=== PATIENT | female | born 1965 | race Caucasian/White ===

== ENCOUNTER 2016-08-05 15:00 | Inpatient (IN) | payer BC, OTHER ==
--- NOTE | 2016-08-05 15:33 | EDPRACDOC ---
<Elvia Benitez - Last Filed: 08/05/16 19:18> - General Information Information Source: Patient Mode Of Arrival: Walk - History of Present Illness HPI: C/o sob, productive cough (gamble) and left side rib pain that radiates into back, occasionally upper left side chest. Pt seen here last friday for sob, fever and dx with pneumonia, acute renal, anemia. Pt states she feels a little better since starting abx but SOB has not improved, prior cough is now productive (gamble ) and left side rib pain started yesterday. Denies fever, N/V/D, change in urine or BM. No med hx. non smoker. Relevant History: Reports: None Cough: Reports: Productive (gamble) Rhinorrhea: Reports: None Ear Symptoms: Reports: None SOB Worsens with: Reports: Exertion, Movement, Coughing SOB Improves with: Reports: Sitting up, Rest Recently treated infections:: Reports: Pneumonia Associated Signs and symptoms: Reports: Cough <Beka Chavez - Last Filed: 08/06/16 00:38> - General Information Chief Complaint: Dyspnea/Resp distress Stated Complaint: SHOB LT SIDED CHEST PAIN & PAIN INTO BACK DX PNEUM Home Medications: Home Medications Acetaminophen with Codeine [TYLENOL WITH CODEINE; [employer] with Codeine] 5 ml PO Q4-6H PRN #120 ml 07/30/16 Ibuprofen 600 mg PO TID #20 tablet 07/30/16 Amoxicillin/Potassium Clav [Augmentin 875-125 Tablet] 1 each PO BID(LAUREN) #16 tablet 07/31/16 Fluticasone/Salmeterol [Advair 250-50] 1 inh INH BID #1 inhaler 07/31/16 Guaifenesin [Mucinex] 1,200 mg PO BID #20 tbmp.12hr 07/31/16 L.acidoph/B.animalis/B.longum [Florajen3 Capsule] 460 mg PO DAILY #60 capsule Levalbuterol Tartrate [Xopenex Hfa] 200 puff IH Q4-6H PRN #1 hfa.aer.ad Levofloxacin [Levaquin] 750 mg PO DAILY #8 tablet 07/31/16 Vitamins,Minerals,Iron [Hemocyte Plus] 1 each PO DAILY #30 tab 07/31/16 Allergies/Adverse Reactions: Allergies Allergy/AdvReac Type Severity Reaction Status Date / Time No Known Allergies Allergy Verified 08/05/16 15:11 ED Past Medical History - History Reviewed Yes Nurses notes reviewed and agree except as marked - Patient Medical History Cardiac History: Reports: Hypercholesterolemia Respiratory History: Reports: Bronchitis GI/ History: Reports: Gastroesophageal Reflux Psychological History: Denies: Depression Surgical History: Reports: Tonsillectomy/Adnoidectomy, Other () - Social Medical History Smoking Status: Never smoker <Beka Chavez - Last Filed: 08/06/16 00:38> EDM Review of Systems - Review of Systems ROS Negative Except as Marked: Yes All systems reviewed and were negative except as marked Respiratory: Cough, Sputum (gamble) Cardiovascular: Chest Pain <Beka Chavez - Last Filed: 08/06/16 00:38> - Physical Exam Last recorded Vital Signs: Last Vital Signs Temp 98.7 F 08/05/16 15:34 Pulse 78 08/05/16 16:40 Resp 18 08/05/16 16:40 BP 131/57 L 08/05/16 16:40 Pulse Ox 93 08/05/16 16:40 Oxygen Pulse Oxygen Saturation 93 O2 Device Room Air Oxygen Flow Rate Fraction of Inspired Oxygen ( FIO2) <Elvia Benitez - Last Filed: 08/05/16 19:18> - Physical Exam Constitutional: Alert, Distress Oriented to: Time, Person, Place Last recorded Vital Signs: Last Vital Signs Temp 98.7 F 08/05/16 15:11 Pulse 84 08/05/16 15:11 Resp 20 08/05/16 15:11 BP 150/69 08/05/16 15:11 Pulse Ox 92 08/05/16 15:11 Oxygen Pulse Oxygen Saturation 92 O2 Device Oxygen Flow Rate Fraction of Inspired Oxygen ( FIO2) - HEENT Head: Normal Eye Exam: negative: Conjunctival Injection, Scleral Icterus Oropharynx: negative: Drooling TMJ: Normal Nose: No Symptoms Reported Neck: Normal - Respiratory/Cardiovascular Respiratory: Normal - CTA (left side), Diminished Cardiovascular: Normal Respiratory/Cardiovascular Comment: Left side ribs TTP - GI Tenderness: Non tender - Musculoskeletal Back: Normal Extremities: Normal - Integumentary Skin: Normal - Neurologic Mood Description: Normal Thought: Coherent <Beka Chavez - Last Filed: 08/06/16 00:38> ED SOB MDM - Results Result Diagrams: 08/05/16 15:55 08/05/16 15:55 Results: WBC 17.7 xk/uL (3.8-10.8) H 08/05/16 15:55 RBC 3.84 xM/uL (4.20-5.40) L 08/05/16 15:55 Hgb 9.2 g/dL (12.0-16.0) L D 08/05/16 15:55 Hct 28.3 % (36-47) L 08/05/16 15:55 MCV 74 fL (81-99) L 08/05/16 15:55 MCH 24.0 pg (27-32) L 08/05/16 15:55 MCHC 32.6 g/dl (33-36) L 08/05/16 15:55 RDW 17.3 % (11.5-14.5) H 08/05/16 15:55 Plt Count 534 xk/uL (130-400) H 08/05/16 15:55 MPV 7.3 fL (7.4-10.4) L 08/05/16 15:55 Neut % (Auto) Cancelled 08/05/16 15:55 Lymph % (Auto) Cancelled 08/05/16 15:55 [place] % (Auto) Cancelled 08/05/16 15:55 Eos % (Auto) Cancelled 08/05/16 15:55 Baso % (Auto) Cancelled 08/05/16 15:55 Absolute Neuts (auto) Cancelled 08/05/16 15:55 Absolute Lymphs (auto) Cancelled 08/05/16 15:55 Seg Neuts % (Manual) 79 % (45-76) H 08/05/16 15:55 Band Neutrophils % 5 % (0-5) 08/05/16 15:55 Lymphocytes % (Manual) 8 % (17-44) L 08/05/16 15:55 Monocytes % (Manual) 6 % (0-10) 08/05/16 15:55 Eosinophils % (Manual) 1 % (0-5) 08/05/16 15:55 Basophils % (Manual) 1 % (0-2) 08/05/16 15:55 Metamyelocytes % 0 % (0) 08/05/16 15:55 Absolute Neutrophils 14.87 xk/uL (1.7-8.2) H 08/05/16 15:55 Absolute Lymphocytes 1.42 xk/uL (0.65-4.75) 08/05/16 15:55 Platelet Estimate Inc (NORMAL) 08/05/16 15:55 RBC Morphology 1+ micro 1+ aniso 08/05/16 15:55 RBC Morphology 1+ micro 1+ aniso 08/05/16 15:55 PT 11.0 SEC (9.2-11.2) 08/05/16 15:55 INR 1.1 08/05/16 15:55 APTT 27.3 SEC (22-35) 08/05/16 15:55 Sodium 140 mEq/L (137-146) 08/05/16 15:55 Potassium 4.0 mEq/L (3.5-5.1) 08/05/16 15:55 Chloride 104 mEq/L (98-107) 08/05/16 15:55 Carbon Dioxide 24 mMOL/L (22-33) 08/05/16 15:55 Anion Gap 16 mEq/L (8-16) 08/05/16 15:55 BUN 7 MG/DL (7-17) 08/05/16 15:55 Creatinine 0.60 MG/DL (0.52-1.04) 08/05/16 15:55 Estimated GFR (MDRD) > 60 mL/min (>=60) 08/05/16 15:55 Glucose 108 MG/DL (70-99) H 08/05/16 15:55 Calculated Osmolality 268 MOs/Kg (270-290) L 08/05/16 15:55 Calcium 9.3 MG/DL (8.4-10.2) 08/05/16 15:55 Corrected Calcium 9.6 MG/DL (8.4-10.2) 08/05/16 15:55 Total Bilirubin 0.5 MG/DL (0.2-1.3) 08/05/16 15:55 AST 23 IU/L (14-36) 08/05/16 15:55 ALT 41 IU/L (9-52) 08/05/16 15:55 Alkaline Phosphatase 117 IU/L (38-126) 08/05/16 15:55 Troponin I < 0.01 ng/mL (<.04) 08/05/16 15:55 Total Protein 7.3 G/DL (6.3-8.2) 08/05/16 15:55 Albumin 3.7 G/DL (3.5-5.0) 08/05/16 15:55 Urine Color Yellow 08/05/16 15:40 Urine Clarity Cldy 08/05/16 15:40 Urine pH 6.0 (5.0-8.0) 08/05/16 15:40 Ur Specific [place] 1.015 (1.003-1.035) 08/05/16 15:40 Urine Protein 1+ (NEG/TRACE) H 08/05/16 15:40 Urine Glucose (UA) Neg (NEGATIVE) 08/05/16 15:40 Urine Ketones Neg (NEGATIVE) 08/05/16 15:40 Urine Occult Blood 3+ (NEG/TRACE) H 08/05/16 15:40 Urine Nitrite Neg (NEGATIVE) 08/05/16 15:40 Urine Bilirubin Neg (NEGATIVE) 08/05/16 15:40 Urine Urobilinogen <2.0 MG/DL (0-1) 08/05/16 15:40 Ur Leukocyte Esterase 2+ (NEGATIVE) H 08/05/16 15:40 Urine RBC Tntc (0-5) H 08/05/16 15:40 Urine WBC 20-30 (0-5) H 08/05/16 15:40 Ur Epithelial Cells 3+ 08/05/16 15:40 Calcium Oxalate Crystal 1+ 08/05/16 15:40 Urine Mucus Mod (NEG/OCC) H 08/05/16 15:40 Lab Results 08/05/16 08/05/16 08/05/16 15:55 15:55 15:55 WBC 17.7 H RBC 3.84 L Hgb 9.2 L D Hct 28.3 L MCV 74 L MCH 24.0 L MCHC 32.6 L RDW 17.3 H Plt Count 534 H MPV 7.3 L Neut % (Auto) Cancelled Lymph % (Auto) Cancelled [place] % (Auto) Cancelled Eos % (Auto) Cancelled Baso % (Auto) Cancelled Absolute Neuts (auto) Cancelled Absolute Lymphs (auto) Cancelled Seg Neuts % (Manual) 79 H Band Neutrophils % 5 Lymphocytes % (Manual) 8 L Monocytes % (Manual) 6 Eosinophils % (Manual) 1 Basophils % (Manual) 1 Metamyelocytes % 0 Absolute Neutrophils 14.87 H Absolute Lymphocytes 1.42 Platelet Estimate Inc RBC Morphology 1+ aniso PT 11.0 INR 1.1 APTT 27.3 Sodium 140 Potassium 4.0 Chloride 104 Carbon Dioxide 24 Anion Gap 16 BUN 7 Creatinine 0.60 Estimated GFR (MDRD) > 60 Glucose 108 H Calculated Osmolality 268 L Calcium 9.3 Corrected Calcium 9.6 Total Bilirubin 0.5 AST 23 ALT 41 Alkaline Phosphatase 117 Troponin I < 0.01 Total Protein 7.3 Albumin 3.7 Urine Color Urine Clarity Urine pH Ur Specific [place] Urine Protein Urine Glucose (UA) Urine Ketones Urine Occult Blood Urine Nitrite Urine Bilirubin Urine Urobilinogen Ur Leukocyte Esterase Urine RBC Urine WBC Ur Epithelial Cells Calcium Oxalate Crystal Urine Mucus 08/05/16 15:40 WBC RBC Hgb Hct MCV MCH MCHC RDW Plt Count MPV Neut % (Auto) Lymph % (Auto) [place] % (Auto) Eos % (Auto) Baso % (Auto) Absolute Neuts (auto) Absolute Lymphs (auto) Seg Neuts % (Manual) Band Neutrophils % Lymphocytes % (Manual) Monocytes % (Manual) Eosinophils % (Manual) Basophils % (Manual) Metamyelocytes % Absolute Neutrophils Absolute Lymphocytes Platelet Estimate RBC Morphology PT INR APTT Sodium Potassium Chloride Carbon Dioxide Anion Gap BUN Creatinine Estimated GFR (MDRD) Glucose Calculated Osmolality Calcium Corrected Calcium Total Bilirubin AST ALT Alkaline Phosphatase Troponin I Total Protein Albumin Urine Color Yellow Urine Clarity Cldy Urine pH 6.0 Ur Specific [place] 1.015 Urine Protein 1+ H Urine Glucose (UA) Neg Urine Ketones Neg Urine Occult Blood 3+ H Urine Nitrite Neg Urine Bilirubin Neg Urine Urobilinogen <2.0 Ur Leukocyte Esterase 2+ H Urine RBC Tntc H Urine WBC 20-30 H Ur Epithelial Cells 3+ Calcium Oxalate Crystal 1+ Urine Mucus Mod H <Elvia Benitez - Last Filed: 08/05/16 19:18> - Re-evaluation Re-evaluation 1 Re-evaluation Time: 16:20 (pt declined duoneb, and pain med for left rib pain. Sitting calmly on RA. ) Re-evaluation 2 Re-evaluation Time: 16:55 (same as before) - Results Result Diagrams: 08/05/16 15:55 08/05/16 15:55 - EKG EKG #1 EKG Time: 15:21 Rate: bpm: 83 [place]: Normal Rhythm: NSR Block: None Hypertrophy: None ST: Normal - Diagnostic Imaging Chest Image interpreted by: Radiologist Diagnostic Imaging Comments: EXAM: CHEST 2 VIEW COMPARISON: 07/31/2016 FINDINGS: Cardiomediastinal silhouette is partially obscured by a large left pleural effusion and/or airspace consolidation. There is a smaller right pleural effusion. Atelectatic changes are seen in the adjacent lung parenchyma bilaterally. Osseous structures are without acute abnormality. Soft tissues are grossly normal. IMPRESSION: Large left pleural effusion and a smaller right pleural effusion. Associated airspace consolidation in the lower lobes cannot be excluded as they are obscured. Electronically Signed By: Joni Jarvis M.D. On: 08/05/2016 16:43 Other Image interpreted by: Radiologist Diagnostic Imaging Comments: EXAM: CT CHEST WITH CONTRAST TECHNIQUE: Multidetector CT imaging of the chest was performed during intravenous contrast administration. CONTRAST: 70 cc Isovue 370 COMPARISON: Chest radiograph dated 08/05/2016 FINDINGS: There is a moderate-sized left pleural effusion with near complete compressive consolidation of the left lower lobe. Superimposed pneumonia or underlying mass is not excluded. Clinical correlation and follow-up recommended. There is a small area of aerated lung tissue at the superior segment of the left lower lobe. There is also partial compressive atelectasis of the left upper lobe and lingula. There is a 1.2 x 2.6 cm low attenuating density along the anterior pleural surface to the left of the sternum which demonstrates fluid attenuation and likely since a small loculated pleural effusion. All There is a small right pleural effusion with partial compressive atelectasis of the right lung base. The right upper lobe is clear. The central airways are patent. The thoracic aorta and central pulmonary arteries appear unremarkable. There is no cardiomegaly. There is pericardial fluid measuring up to 1.4 cm in greatest axial dimension. Correlation with echocardiogram recommended. There is no mediastinal adenopathy. No adenopathy is identified in the right hilum. Evaluation of the left hilum is limited due to consolidative changes of the adjacent lung. The esophagus appears grossly unremarkable. Subcentimeter left thyroid hypodense nodule. There is no axillary adenopathy. The chest wall soft tissues appear unremarkable. The osseous structures are intact. The visualized upper abdomen appears grossly unremarkable. IMPRESSION: Moderate left and small right pleural effusion. There is complete consolidative changes of the left lower lobe with partial compressive atelectasis of the left upper lobe. Superimposed pneumonia or underlying mass is not excluded. Clinical correlation and follow-up recommended. Pericardial effusion measuring up to 1.4 cm in greatest axial dimension. Correlation with echocardiogram recommended. Electronically Signed By: Kendrick Pritchett M.D. On: 08/05/2016 18:52 - Additional Information Additional Information: Hx of BTL, and just finishing menses. <Beka Chavez - Last Filed: 08/06/16 00:38> Decision to Admit Time: 19:18 Decision to admit date: 08/05/16 Decision to admit: from ED - Physician Consulted Hospitalist Time Called: 19:18 Provider Called: Alysia Rider Time Speech And Language Tutor Returned Call: 19:18 <Elvia Benitez - Last Filed: 08/05/16 19:18> - Departure Disposition: Admit IP To This Hospital <Beka Chavez - Last Filed: 08/06/16 00:38> - Departure Condition: Stable Final Diagnosis: Pleural effusion associated with pulmonary infection Anemia Qualifiers: Anemia type: unspecified type Qualified Code(s): D64.9 - Anemia, unspecified
[2016-08-05 15:59] LABS: CA OXALATE 1+; LEUKOCYTES/URINE 2+ (NEGATIVE); NITRITE/URINE NEG (NEGATIVE); RBC/URINE TNTC (0-5); URINE OCCULT BLOOD 3+ (NEG/TRACE); WBC/URINE 20-30 (0-5)
[2016-08-05 16:02] LABS: MPV 7.3 fL (7.4-10.4)
[2016-08-05 16:15] LABS: BLOOD UREA NITROGEN 7 MG/DL (7-17); CALC CORRECTED 9.6 MG/DL (8.4-10.2); CALCIUM 9.3 MG/DL (8.4-10.2); CALCULATED OSMOLALITY 268 MOs/Kg (270-290); CHLORIDE 104 mEq/L (98-107); GLUCOSE 108 MG/DL (70-99); SODIUM LEVEL 140 mEq/L (137-146); TOTAL PROTEIN 7.3 G/DL (6.3-8.2)
[2016-08-05 16:27] LABS: PARTIAL THROMB. TIME 27.3 SEC (22-35); PT-INR 1.1
--- NOTE | 2016-08-05 16:46 | DIRPT ---
CLINICAL DATA: Shortness of breath. EXAM: CHEST 2 VIEW COMPARISON: 07/31/2016 FINDINGS: Cardiomediastinal silhouette is partially obscured by a large left pleural effusion and/or airspace consolidation. There is a smaller right pleural effusion. Atelectatic changes are seen in the adjacent lung parenchyma bilaterally. Osseous structures are without acute abnormality. Soft tissues are grossly normal. IMPRESSION: Large left pleural effusion and a smaller right pleural effusion. Associated airspace consolidation in the lower lobes cannot be excluded as they are obscured. Electronically Signed By: Joni Jarvis M.D. On: 08/05/2016 16:43
[2016-08-05] MEDS ORDERED: Pharmacy Review for Metformin - IV Contrast Given SCH (17:00)
[2016-08-05 17:17] LABS: SEG NEUTROPHIL 79 % (45-76); TOTAL CELL COUNT 100
[2016-08-05] MEDS ORDERED: MORPHINE 4 MG/ML INJECTION IV ONE (17:39)
[2016-08-05] MEDS ORDERED: ONDANSETRON HCL 4 MG/2 ML VIAL IV ONE (17:39)
--- NOTE | 2016-08-05 18:55 | DIRPT ---
CLINICAL DATA: 51-year-old female with a left-sided pleural effusion EXAM: CT CHEST WITH CONTRAST TECHNIQUE: Multidetector CT imaging of the chest was performed during intravenous contrast administration. CONTRAST: 70 cc Isovue 370 COMPARISON: Chest radiograph dated 08/05/2016 FINDINGS: There is a moderate-sized left pleural effusion with near complete compressive consolidation of the left lower lobe. Superimposed pneumonia or underlying mass is not excluded. Clinical correlation and follow-up recommended. There is a small area of aerated lung tissue at the superior segment of the left lower lobe. There is also partial compressive atelectasis of the left upper lobe and lingula. There is a 1.2 x 2.6 cm low attenuating density along the anterior pleural surface to the left of the sternum which demonstrates fluid attenuation and likely since a small loculated pleural effusion. All There is a small right pleural effusion with partial compressive atelectasis of the right lung base. The right upper lobe is clear. The central airways are patent. The thoracic aorta and central pulmonary arteries appear unremarkable. There is no cardiomegaly. There is pericardial fluid measuring up to 1.4 cm in greatest axial dimension. Correlation with echocardiogram recommended. There is no mediastinal adenopathy. No adenopathy is identified in the right hilum. Evaluation of the left hilum is limited due to consolidative changes of the adjacent lung. The esophagus appears grossly unremarkable. Subcentimeter left thyroid hypodense nodule. There is no axillary adenopathy. The chest wall soft tissues appear unremarkable. The osseous structures are intact. The visualized upper abdomen appears grossly unremarkable. IMPRESSION: Moderate left and small right pleural effusion. There is complete consolidative changes of the left lower lobe with partial compressive atelectasis of the left upper lobe. Superimposed pneumonia or underlying mass is not excluded. Clinical correlation and follow-up recommended. Pericardial effusion measuring up to 1.4 cm in greatest axial dimension. Correlation with echocardiogram recommended. Electronically Signed By: Kendrick Pritchett M.D. On: 08/05/2016 18:52
[2016-08-05] MEDS ORDERED: FUROSEMIDE 40 MG/4 ML VIAL IV ONE (19:12)
[2016-08-05] MEDS ORDERED: PIPERACILLIN AND TAZOBACTAM 3.375 GM in D5W 100 ML IV ONE (19:17)
[2016-08-05] MEDS ORDERED: SODIUM CHLORIDE 0.9% 3 ML FLUSH FLUSH PRN (19:38)
[2016-08-05] MEDS ORDERED: SIMETHICONE 80 MG TAB PO PRN (19:38)
[2016-08-05] MEDS ORDERED: BENZONATATE 100 MG PERLES PO PRN (19:38)
[2016-08-05] MEDS ORDERED: TEMAZEPAM 15 MG CAP PO PRN (19:38)
[2016-08-05] MEDS ORDERED: PROMETHAZINE 25 MG/ML VIAL IV PRN (19:38)
[2016-08-05] MEDS ORDERED: DOCUSATE-SENNA CONCENTRATE TAB PO PRN (19:38)
[2016-08-05] MEDS ORDERED: ACETAMINOPHEN 650 MG SUPP PR PRN (19:38)
[2016-08-05] MEDS ORDERED: FLUTICASONE/SALMETEROL 250/50 DISKUS INH SCH (20:00)
[2016-08-05] MEDS: ACETAMINOPHEN 325 MG/TAB TABLET PO PRN (20:05)
[2016-08-05] MEDS ORDERED: GUAIFENESIN 1200 MG PO SCH (21:00)
[2016-08-05] MEDS: GUAIFENESIN 600 MG LA TAB PO SCH (21:10)
[2016-08-05] MEDS: ENOXAPARIN 40 MG/0.4 ML PFS SQ SCH (21:10)
[2016-08-05] MEDS: FLUTICASONE/SALMETEROL 250/50 DISKUS INH SCH (21:21)
[2016-08-05] MEDS ORDERED: Vaccine Screening Complete SCH (22:00)
--- NOTE | 2016-08-05 22:30 | HISTPHYS ---
- Chief Complaint CHEST PAIN, SHORT OF BREATH - History of Present Illness Yasmeen Villagomez is a pleasant white female who was recently hospitalized with a left lower lobe pneumonia, discharged home on the 31 of July. She returns tonight complaining of worsening shortness of breath and cough with pain in her left ribs and left shoulder. She reports persistent coughing, although non-productive, and gradually worsening shortness of breath. She states she has done everything she was told to do; she used her incentive spirometer several times a day and has taken all of her medications as directed. In spite of this she has worsening fatigue and chest pain in her left lower ribs. Her CT of the chest tonight reveals a large left pleural effusion, with a small effusion on the right, and a small pericardial effusion also. Most likely this is a david-pneumonic effusion and is probably from a viral pneumonitis. However, the left sided pleural effusion is quite large and will likely need thoracentesis for definitive treatment. She is being admitted for further evaluation and management. - Medical History Cardiac History: Reports: No Significant History Respiratory History: Reports: No Significant History, Pneumonia (10 days ago) GI/ History: Reports: Urinary Tract Infection Musculoskeletal History: Reports: No Significant History Systemic History: Reports: No Significant History Neurological History: Reports: No Significant History Psychological History: Reports: No Significant History. Denies: Depression - Surgical History Reports: Tonsillectomy/Adnoidectomy, Other () - Medictions/Allergies Allergies No Known Allergies Allergy (Verified 08/05/16 15:11) Current Medication List: Reviewed Home Medications Acetaminophen with Codeine [TYLENOL WITH CODEINE; [employer] with Codeine] 5 ml PO Q4-6H PRN #120 ml 07/30/16 Ibuprofen 600 mg PO TID #20 tablet 07/30/16 Amoxicillin/Potassium Clav [Augmentin 875-125 Tablet] 1 each PO BID(LAUREN) #16 tablet 07/31/16 Fluticasone/Salmeterol [Advair 250-50] 1 inh INH BID #1 inhaler 07/31/16 Guaifenesin [Mucinex] 1,200 mg PO BID #20 tbmp.12hr 07/31/16 L.acidoph/B.animalis/B.longum [Florajen3 Capsule] 460 mg PO DAILY #60 capsule Levalbuterol Tartrate [Xopenex Hfa] 200 puff IH Q4-6H PRN #1 hfa.aer.ad Levofloxacin [Levaquin] 750 mg PO DAILY #8 tablet 07/31/16 Vitamins,Minerals,Iron [Hemocyte Plus] 1 each PO DAILY #30 tab 07/31/16 - Family History Reports: No Significant History - Social History Travel Outside of [place] in the Last 3 Months?: No Lives: with Spouse Smoking Status: Never smoker Social History: Denies: Alcohol Use - Review of Systems Constitutional: Fatigue, Weakness Eyes: No Symptoms Reported Ears: No Symptoms Reported Nose: No Symptoms Reported Mouth: No Symptoms Reported Throat/Neck: No Symptoms Reported Respiratory: Barky Cough, Cough, Shortness of Breath, Dyspnea. negative: Wheezing, Asthma Cardiovascular: Chest Pain (L ribs) Gastrointestinal: Nausea, Diarrhea (1 episode a week ago). negative: Vomiting, Abdominal Pain Genitourinary: No Symptoms Reported Neurological: Dizziness, Weakness Musculoskeletal:: No Symptoms Reported Integumentary: No Symptoms Reported Allergic/Immunologic: No Symptoms Reported Hematologic: No Symptoms Reported Endocrine: Weight Gain (10 pounds since last hospitalization) Psychiatric: No Symptoms Reported - Physical Exam Vital Signs: Initial Vitals Temperature 98.7 F 08/05/16 15:11 Pulse Rate 84 08/05/16 15:11 Respiratory Rate 20 08/05/16 15:11 Blood Pressure 150/69 08/05/16 15:11 Pulse Oxygen Saturation 92 08/05/16 15:11 Constitutional: No apparent distress, Alert, Well nourished, Well appearing Oriented to: Time, Person, Place - HEENT Head: Normal Eye: Normal (PERRL;EOMI) Oropharynx: Normal (MUCOUS MEMBRANES MOIST AND PINK, NO EXUDATE OR ERYTHEMA) Tympanic Membrane: Normal ENT EAC: Normal TMJ: Normal Nose: No Symptoms Reported. negative: Bleeding, Congestion, Discharge, Deformity Respiratory: Diminished (BREATH SOUNDS L BASE, but hyper-resonant in hilar areas bilaterally, moreso on the right), Tachypnea. negative: Wheezes Cardiovascular: Normal (regular rhythm and rate, slightly hyperdynamic), Gallop/ S4 - GI Auscultation: Normal Palpation: Normal (soft, nondistended, nontender, no mass) Tenderness: Non tender Luong's Sign: Negative Rectal Exam: Deferred - Musculoskeletal Back: Normal, No Palpable Step-off. negative: CVA Tenderness Extremities: Normal, Pedal Pulse (normal), Radial Pulse (normal). negative: Clubbing, Cyanosis, Edema Spine: non-tender, normal alignment, normal inspection - Integumentary Skin: Warm, Dry Lymphatics: Normal - Neurologic Memory Impaired: Normal Motor Function: Normal Cranial Nerve: Normal Cerebellar: Normal Mood Description: Normal Thought: Coherent Perception: Normal - Focused CV Perfusion Exam Vital Signs: Last Vital Signs Temp 99.9 F 08/05/16 20:47 Pulse 81 08/05/16 21:17 Resp 18 08/05/16 20:47 BP 134/57 L 08/05/16 20:47 Pulse Ox 94 08/05/16 20:47 - Lab Results Laboratory Tests 08/05/16 08/05/16 08/05/16 15:55 15:55 15:55 WBC 17.7 H Hgb 9.2 L D Hct 28.3 L Plt Count 534 H Seg Neuts % (Manual) 79 H Band Neutrophils % 5 Lymphocytes % (Manual) 8 L Monocytes % (Manual) 6 PT 11.0 INR 1.1 APTT 27.3 Sodium 140 Potassium 4.0 Chloride 104 Carbon Dioxide 24 BUN 7 Creatinine 0.60 Estimated GFR (MDRD) > 60 Glucose 108 H Calculated Osmolality 268 L Lactic Acid Calcium 9.3 Corrected Calcium 9.6 Troponin I < 0.01 C-Reactive Prot, Quant Gug-L-Mrsfzwpauni Pept Total Protein 7.3 Albumin 3.7 08/05/16 08/05/16 08/05/16 15:55 19:57 19:57 WBC Hgb Hct Plt Count Seg Neuts % (Manual) Band Neutrophils % Lymphocytes % (Manual) Monocytes % (Manual) PT INR APTT Sodium Potassium Chloride Carbon Dioxide BUN Creatinine Estimated GFR (MDRD) Glucose Calculated Osmolality Lactic Acid 1.2 Calcium Corrected Calcium Troponin I C-Reactive Prot, Quant 201.0 H Lkf-K-Humulbxaves Pept 2120 H Total Protein Albumin - Diagnostic Findings CXR:IMPRESSION: Large left pleural effusion and a smaller right pleural effusion. Associated airspace consolidation in the lower lobes cannot be excluded as they are obscured. Electronically Signed By: Joni Jarvis M.D. On: 08/05/2016 16:43 CT CHEST:IMPRESSION: Moderate left and small right pleural effusion. There is complete consolidative changes of the left lower lobe with partial compressive atelectasis of the left upper lobe. Superimposed pneumonia or underlying mass is not excluded. Clinical correlation and follow-up recommended. Pericardial effusion measuring up to 1.4 cm in greatest axial dimension. Correlation with echocardiogram recommended. Electronically Signed By: Kendrick Pritchett M.D. On: 08/05/2016 18:52 - Assessment (1) Pleural effusion associated with pulmonary infection J18.9 - PNEUMONIA, UNSPECIFIED ORGANISM; J91.8 - PLEURAL EFFUSION IN OTHER CONDITIONS CLASSIFIED ELSEWHERE Acute Present on Admission: Yes Admit, obtain blood and sputum cultures, start IV antibiotics. Will avoid excessive fluid overload since she dose not appear to be septic and seems to be well hydrated. Adjust antibiotic coverage to avoid resistance, schedule thoracentesis and echocardiogram in AM. (2) Bacterial pneumonia J15.9 - UNSPECIFIED BACTERIAL PNEUMONIA Acute Present on Admission: Yes Patient returns with persistent pneumonia, pneumonitis and pleural effusion due to the infection. Will consult surgeon for thoracentesis. Antibiotics changed to avoid resistance. (3) GERD (gastroesophageal reflux disease) K21.9 - GASTRO-ESOPHAGEAL REFLUX DISEASE WITHOUT ESOPHAGITIS Acute Present on Admission: Yes Qualifiers: Esophagitis presence: without esophagitis Qualified Code(s): K21.9 - Gastro -esophageal reflux disease without esophagitis Continue PPI- Protonix (4) Microcytic anemia D50.9 - IRON DEFICIENCY ANEMIA, UNSPECIFIED Acute Present on Admission: Yes Monitor counts, transfuse as needed and indicated.. Patient was advised that she will need outpatient ob gyn and GI evaluations (5) Pleurisy R09.1 - PLEURISY Acute Present on Admission: Yes Continue p.r.n. Tylenol, NSAIDs, narcotics. (6) UTI (urinary tract infection) N39.0 - URINARY TRACT INFECTION, SITE NOT SPECIFIED Acute Present on Admission: Yes Qualifiers: Urinary tract infection type: acute cystitis Hematuria presence: with hematuria Qualified Code(s): N30.01 - Acute cystitis with hematuria CULTURE URINE, continue antibiotics & IV fluids. Case Care Discussed with: Patient, Family, Nursing Staff Critical Care: Yes Couseling Time (>50% in counseling/coordination): Yes Code: 291
[2016-08-05] MEDS: Levofloxacin 750 mg/150 ml D5W 750 MG/150 ML RTU IV SCH (22:40)
[2016-08-05] MEDS: OXYCODONE HCL 5 MG TABLET PO PRN (22:59)
[2016-08-06] MEDS: PIPERACILLIN AND TAZOBACTAM 3.375 GM in D5W 100 ML IV SCH ×4 (01:25→20:04)
[2016-08-06] MEDS: SODIUM CHLORIDE 0.9% 3 ML FLUSH FLUSH SCH ×2 (02:06→17:17)
[2016-08-06 05:34] LABS: ABG Draw Site Left Radial; ALLEN'S TEST PASS; BEb 2.7 (+/- 2); TCO2 27.3 MMOL/L (23-27)
[2016-08-06] MEDS: OXYCODONE HCL 5 MG TABLET PO PRN ×3 (05:58→17:23)
[2016-08-06] MEDS: PANTOPRAZOLE 40 MG TAB PO SCH ×2 (05:59→17:17)
[2016-08-06] MEDS: ACETAMINOPHEN 325 MG/TAB TABLET PO PRN (05:59)
[2016-08-06 06:56] LABS: MPV 7.4 fL (7.4-10.4)
[2016-08-06 07:12] LABS: PT-INR 1.1
[2016-08-06 07:18] LABS: BLOOD UREA NITROGEN 5 MG/DL (7-17); CALCIUM 8.7 MG/DL (8.4-10.2); CALCULATED OSMOLALITY 261 MOs/Kg (270-290); CHLORIDE 100 mEq/L (98-107); GLUCOSE 96 MG/DL (70-99); SODIUM LEVEL 137 mEq/L (137-146)
[2016-08-06 07:41] LABS: SEG NEUTROPHIL 85 % (45-76)
[2016-08-06] MEDS: GUAIFENESIN 600 MG LA TAB PO SCH (07:41)
[2016-08-06] MEDS: VITS,MINERALS,IRON TAB PO SCH (07:41)
--- NOTE | 2016-08-06 08:10 | GENMEDPROG ---
Chief Complaint: Worsening shortness of breath, left-sided chest pain. Subjective Note: No acute events overnight, denies any fevers, still with chest pain which is worsened with exertion and coughing. Notes Reviewed: Yes Events from last night noted and discussed with Clinical Staff Current Medication List: Reviewed Currently: Reports: Cough, Wheezing, ZAMORA DVT Prophylaxis: Yes - Physical Examination Vital Signs and I&O: Last Vital Signs Temp 99.5 F 08/06/16 04:08 Pulse 65 08/06/16 07:45 Resp 18 08/06/16 04:08 BP 112/48 L 08/06/16 04:08 Pulse Ox 93 08/06/16 04:08 Oxygen Pulse Oxygen Saturation 93 O2 Device Nasal Cannula Oxygen Flow Rate 2 Fraction of Inspired Oxygen ( FIO2) Intake & Output 08/04/16 08/05/16 08/06/16 08/07/16 06:59 06:59 06:59 06:59 Intake Total 119 842 Output Total 3600 Balance -3481 842 Patient's weight 88.042 kg General: Alert, Oriented x3, Mild distress HEENT: EOMI (Sclera white) Neck: Normal Trachea alignment, Normal inspection Lymphatics: Normal Respiratory: Diminished (BREATH SOUNDS L BASE, but hyper-resonant in hilar areas bilaterally, moreso on the right), Tachypnea. negative: Wheezes Cardiovascular: Regular rate, No Gallops,Rubs/Murmurs GI: Normal bowel sounds, Soft, Non tender (non distended) Psych/Mental Status: Anxious Lab/DI/Studies Reviewed: Laboratory Tests 08/06/16 08/06/16 08/06/16 05:28 06:05 06:05 WBC 15.3 H Hgb 8.4 L INR pH 7.470 H pCO2 36.0 pO2 54.0 L Potassium 3.7 BUN 5 L Creatinine 0.60 08/06/16 06:05 WBC Hgb INR 1.1 pH pCO2 pO2 Potassium BUN Creatinine - Assessment (1) Pleural effusion associated with pulmonary infection Acute J18.9 - PNEUMONIA, UNSPECIFIED ORGANISM; J91.8 - PLEURAL EFFUSION IN OTHER CONDITIONS CLASSIFIED ELSEWHERE Comment/Plan: Patient admitted to the hospital due to large left pleural effusion associated with what now looks like bilateral pneumonia. Antibiotics have been broadened to Levaquin, Zosyn and vancomycin. Supplemental oxygen as needed. Echocardiogram is pending this morning, and surgery has been consulted for bedside thoracentesis. Appropriate labs have been ordered by this junior technical writer. (2) Anemia Acute D64.9 - ANEMIA, UNSPECIFIED Qualifiers: Anemia type: unspecified type Qualified Code(s): D64.9 - Anemia, unspecified (3) UTI (urinary tract infection) Acute N39.0 - URINARY TRACT INFECTION, SITE NOT SPECIFIED Qualifiers: Urinary tract infection type: acute cystitis Hematuria presence: with hematuria Qualified Code(s): N30.01 - Acute cystitis with hematuria Comment/Plan: CULTURE URINE, continue antibiotics & IV fluids. (4) Bacterial pneumonia Acute J15.9 - UNSPECIFIED BACTERIAL PNEUMONIA Comment/Plan: Patient returns with persistent pneumonia, pneumonitis and pleural effusion due to the infection. Will consult surgeon for thoracentesis. Antibiotics changed to avoid resistance. (5) GERD (gastroesophageal reflux disease) Acute K21.9 - GASTRO-ESOPHAGEAL REFLUX DISEASE WITHOUT ESOPHAGITIS Qualifiers: Esophagitis presence: without esophagitis Qualified Code(s): K21.9 - Gastro -esophageal reflux disease without esophagitis Comment/Plan: Continue PPI- Protonix
[2016-08-06] MEDS ORDERED: B ANIMALIS PO SCH (09:00)
[2016-08-06] MEDS ORDERED: B LONGUM PO SCH (09:00)
[2016-08-06] MEDS ORDERED: [UNRECOGNIZED DRUG - OTHER] PO SCH (09:00)
[2016-08-06] MEDS ORDERED: ACIDOPH PO SCH (09:00)
--- NOTE | 2016-08-06 09:01 | PCM.SURGCO ---
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 We have been asked to evaluate and treat. Has no hx of pneumonia or other pulmonary problems. No tobacco abuse. Has been found to have Iron deficient anemia. Has heavy periods. No blood in stool. No colonoscopy. Had mammogram 2 or 3 years ago. No wt loss. Symptoms one week of SOB and cough. SOB now worse. No exposure hx that she knows. Chief Complaint: CHEST PAIN, SHORT OF BREATH - Past Medical and Surgical History Cardiac History: Reports: No Significant History. Denies: Coronary Artery Disease, Atrial Fibrillation Respiratory History: Reports: Pneumonia (10 days ago). Denies: Asthma, Bronchitis GI/ History: Reports: Urinary Tract Infection. Denies: Ulcer Systemic History: Reports: Anemia. Denies: Cancer, Diabetes Musculoskeletal History: Reports: No Significant History. Denies: Arthritis, Rheumatoid Arthritis Psychological History: Reports: No Significant History. Denies: Depression, Alcoholism Neurological History: Reports: No Significant History. Denies: Cerebrovascular Accident, Seizures Past Surgical History: Reports: Tonsillectomy/Adnoidectomy, Other () Allergies No Known Allergies Allergy (Verified 08/05/16 15:11) Home Medications Acetaminophen with Codeine [TYLENOL WITH CODEINE; [employer] with Codeine] 5 ml PO Q4-6H PRN #120 ml 07/30/16 Ibuprofen 600 mg PO TID #20 tablet 07/30/16 Amoxicillin/Potassium Clav [Augmentin 875-125 Tablet] 1 each PO BID(LAUREN) #16 tablet 07/31/16 Fluticasone/Salmeterol [Advair 250-50] 1 inh INH BID #1 inhaler 07/31/16 Guaifenesin [Mucinex] 1,200 mg PO BID #20 tbmp.12hr 07/31/16 L.acidoph/B.animalis/B.longum [Florajen3 Capsule] 460 mg PO DAILY #60 capsule Levalbuterol Tartrate [Xopenex Hfa] 200 puff IH Q4-6H PRN #1 hfa.aer.ad Levofloxacin [Levaquin] 750 mg PO DAILY #8 tablet 07/31/16 Vitamins,Minerals,Iron [Hemocyte Plus] 1 each PO DAILY #30 tab 07/31/16 - Social History Travel Outside of [place] in the Last 3 Months?: No Lives: with Spouse Smoking Status: Never smoker Social History: Denies: Alcohol Use - Family History Reports: Cancer (Mother with breast cancer at age 46.) - Review of Systems Constitutional: Chills, Fever, Fatigue Eyes: No Symptoms Reported. negative: Blurred Vision, Double Vision Ears: No Symptoms Reported. negative: Drainage, Hearing Loss Nose: No Symptoms Reported. negative: Abrasion, Bleeding Mouth: No Symptoms Reported. negative: Pain, Tooth Pain Throat/Neck: No Symptoms Reported. negative: Pain, Swelling Respiratory: Cough, Shortness of Breath. negative: Hemoptysis, Sputum Cardiovascular: No Symptoms Reported. negative: Chest Pain, Palpitations Gastrointestinal: No Symptoms Reported. negative: Nausea, Vomiting, Abdominal Pain, Diarrhea Genitourinary: negative: Bleeding, Foul Ordor Neurological: No Symptoms Reported. negative: Dizziness, Seizure Musculoskeletal:: No Symptoms Reported. negative: Chronic low back pain, Osteoarthritis, Stiffness Integumentary: No Symptoms Reported. negative: Bruising, Wound Allergic/Immunologic: No Symptoms Reported. negative: Hives, Itching Hematologic: Anemia. negative: Lymphadenopathy, Easy Bruising, Easy Bleeding Endocrine: No Symptoms Reported. negative: Weight Gain, Weight Loss Psychiatric: No Symptoms Reported. negative: Anxiety, Depression - Physical Exam Vital Signs: Initial Vitals Temperature 98.7 F 08/05/16 15:11 Pulse Rate 84 08/05/16 15:11 Respiratory Rate 20 08/05/16 15:11 Blood Pressure 150/69 08/05/16 15:11 Pulse Oxygen Saturation 92 08/05/16 15:11 Constitutional: No apparent distress, Alert Oriented to: Time, Person, Place - HEENT Head: Normal. negative: Laceration, Tender Eye: Normal. negative: Edema, Scleral Icterus Oropharynx: Normal. negative: Membranes Dry, Red ENT EAC: Normal. negative: Blood TMJ: Normal. negative: Crepitance, Tender Nose: No Symptoms Reported. negative: Abrasion, Bleeding Respiratory: Diminished, Rhonchi Cardiovascular: Normal. negative: Bradycardia, Tachycardia, Irregular - GI Auscultation: Normal. negative: Bruit Palpation: Normal. negative: Enlarged liver, Enlarged spleen Tenderness: Non tender Luong's Sign: Negative Rectal Exam: Deferred - Exam Deferred: Yes - Musculoskeletal Back: Normal. negative: Abrasion, Ecchymosis, CVA Tenderness Extremities: Normal. negative: Calf Tenderness, Clubbing, Cyanosis, Edema Spine: non-tender, full range of motion, normal alignment - Integumentary Skin: Normal. negative: Clammy, Diaphoretic Lymphatics: Normal. negative: Adenopathy, Tender - Neurologic Memory Impaired: Normal Motor Function: Normal Cranial Nerve: Normal Cerebellar: Normal Mood Description: Normal Thought: Coherent Perception: Normal - Lab Results 08/06/16 06:05 08/06/16 06:05 - Assessment/Plan (1) Pleural effusion associated with pulmonary infection J18.9 - PNEUMONIA, UNSPECIFIED ORGANISM; J91.8 - PLEURAL EFFUSION IN OTHER CONDITIONS CLASSIFIED ELSEWHERE Acute Comment: Will plan on thoracentesis. I explained the risks and benefits. (2) Pneumonia J18.9 - PNEUMONIA, UNSPECIFIED ORGANISM Acute due to unspecified organism left lower lobe of lung J18.1 - Lobar pneumonia, unspecified organism Comment: On ABX. Thoracentesis. (3) Microcytic anemia D50.9 - IRON DEFICIENCY ANEMIA, UNSPECIFIED Acute Comment: Needs w/u. Contributing to SOB and effusions. (lack of oncotic pressure) (4) Pleurisy R09.1 - PLEURISY Resolved Comment: Thoracentesis and pain meds.
[2016-08-06] MEDS: FLUTICASONE/SALMETEROL 250/50 DISKUS INH SCH ×2 (09:39→19:46)
[2016-08-06] MEDS: PROBIOTIC BLEND TAB PO SCH (11:25)
[2016-08-06] MEDS ORDERED: MORPHINE 2 MG/ML INJECTION ONE (12:32)
--- NOTE | 2016-08-06 12:43 | HIMOPRPT ---
DATE OF PROCEDURE: 08/06/16 PREOPERATIVE DIAGNOSIS: Symptomatic effusion and pneumonia POSTOPERATIVE DIAGNOSIS: Same. PROCEDURE: Thoracentesis with u/s guidance. SURGEON: Fritz Esquivel MD ANESTHESIA: None. COMPLICATIONS: None noted. ESTIMATED BLOOD LOSS: Minimal INDICATIONS: GABI LAZARO is an unfortunate 51 F who had symptomatic effusion and then pneumonia on the left side. We have been asked to evaluate and treat, felt the patient would benefit from thoracentesis. I had explained the risks and benefits of this to patient including risk of infection, bleeding , anesthesia, as well as the unforeseen complications, risk of pneumothorax and hemothorax. The patient understood and agreed. We did this in the room. PROCEDURE IN DETAIL: The patient was identified as such, prepped and draped in sterile manner. After appropriate time-out, we went ahead, anesthetized the left chest and under ultrasound guidance, we placed a large-bore needle approximately the 8th interspace via posterior axillary line. We obtained serous fluid. It was consistent with effusion. So the needle and catheter had been removed after withdrawing 900 mL of fluid. The patient tolerated this. CXR was called.
[2016-08-06] MEDS ORDERED: MORPHINE 2 MG/ML INJECTION IV ONE (13:00)
--- NOTE | 2016-08-06 13:14 | DIRPT ---
CLINICAL DATA: Status post left-sided thoracentesis. Chest pain. Recent pneumonia. EXAM: PORTABLE CHEST 1 VIEW COMPARISON: Plain film and CT of 1 day prior FINDINGS: Midline trachea. Normal heart size. Moderate left pleural effusion persists. Probable trace right pleural fluid. No pneumothorax. left mid lower and mid lung airspace disease persists. IMPRESSION: Persistent left pleural fluid and adjacent airspace disease. No pneumothorax. Possible trace right pleural effusion. Electronically Signed By: Mauro Cameron M.D. On: 08/06/2016 13:11
[2016-08-06 13:19] LABS: AUTO TNC/BODY FLUID 3366 /cu mm
[2016-08-06 13:38] LABS: BACKGROUND COUNT 0 (<20); BODY FLUID LYMPHOCYTE 15 %; BODY FLUID MONOCYTE 11 %; BODY FLUID NEUTROPHIL 74 %; BODY FLUID TYPE PLEURAL
[2016-08-06 13:39] LABS: PH-BODY FLUID 7.48; RBC/BODY FLUID SM AMT /cu mm
[2016-08-06] MEDS: ENOXAPARIN 40 MG/0.4 ML PFS SQ SCH (17:17)
[2016-08-06] MEDS: ONDANSETRON HCL 4 MG/2 ML VIAL IV PRN (20:17)
[2016-08-07] MEDS: GUAIFENESIN 600 MG LA TAB PO SCH ×3 (00:36→20:55)
[2016-08-07] MEDS: Levofloxacin 750 mg/150 ml D5W 750 MG/150 ML RTU IV SCH (02:06)
[2016-08-07] MEDS: ONDANSETRON HCL 4 MG/2 ML VIAL IV PRN (03:59)
[2016-08-07] MEDS: MORPHINE 2 MG/ML INJECTION IV PRN (04:05)
[2016-08-07] MEDS: PIPERACILLIN AND TAZOBACTAM 3.375 GM in D5W 100 ML IV SCH ×5 (04:18→20:55)
[2016-08-07] MEDS: FLUTICASONE/SALMETEROL 250/50 DISKUS INH SCH ×2 (07:55→21:15)
[2016-08-07 07:59] LABS: BLOOD UREA NITROGEN 9 MG/DL (7-17); CALCIUM 8.7 MG/DL (8.4-10.2); CALCULATED OSMOLALITY 260 MOs/Kg (270-290); CHLORIDE 98 mEq/L (98-107); GLUCOSE 111 MG/DL (70-99); SODIUM LEVEL 135 mEq/L (137-146)
[2016-08-07] MEDS: VITS,MINERALS,IRON TAB PO SCH (08:44)
[2016-08-07] MEDS: PANTOPRAZOLE 40 MG TAB PO SCH ×2 (08:44→16:24)
[2016-08-07] MEDS: SODIUM CHLORIDE 0.9% 3 ML FLUSH FLUSH SCH ×2 (08:44→16:24)
[2016-08-07] MEDS: PROBIOTIC BLEND TAB PO SCH (08:45)
[2016-08-07] MEDS ORDERED: PEG-ELECTROLYTE 17 GM PACK PO PRN (08:53)
--- NOTE | 2016-08-07 08:56 | GENMEDPROG ---
Chief Complaint: Bilateral pneumonia, left pleural effusion Subjective Note: No acute complaints, but not feeling as energetic or improved she had hoped. Still with some mild left-sided chest pain which is pleuritic. Feels constipated. No significant cough, no fevers. Notes Reviewed: Yes Events from last night noted and discussed with Clinical Staff Current Medication List: Reviewed Currently: Reports: Cough, Wheezing, ZAMORA DVT Prophylaxis: Yes - Physical Examination Vital Signs and I&O: Last Vital Signs Temp 98.3 F 08/07/16 07:10 Pulse 68 08/07/16 07:10 Resp 20 08/07/16 07:56 BP 119/65 08/07/16 07:10 Pulse Ox 97 08/07/16 07:56 Oxygen Pulse Oxygen Saturation 97 O2 Device Nasal Cannula Oxygen Flow Rate 2 Fraction of Inspired Oxygen ( FIO2) Intake & Output 08/05/16 08/06/16 08/07/16 08/08/16 06:59 06:59 06:59 06:59 Intake Total 119 1442 293 Output Total 3600 1600 Balance -3481 -158 293 Patient's weight 88.042 kg 88.813 kg General: Alert, Oriented x3, Cooperative, Mild distress HEENT: EOMI (Sclera white) Neck: Normal Trachea alignment, Normal inspection Lymphatics: Normal. negative: Adenopathy, Tender Respiratory: Diminished (On left side), Rhonchi Cardiovascular: Regular rate, No Gallops,Rubs/Murmurs GI: Normal bowel sounds, Soft, Non tender (non distended) Extremities/Musculoskeletal: Other (Normal Tone). negative: Edema, Cyanosis Psych/Mental Status: Anxious Lab/DI/Studies Reviewed: Laboratory Tests 08/06/16 08/07/16 08/07/16 06:05 07:01 07:01 WBC 14.5 H Hgb 8.3 L Potassium 4.0 Creatinine 0.60 2.30 H D - Assessment (1) Pleural effusion associated with pulmonary infection Acute J18.9 - PNEUMONIA, UNSPECIFIED ORGANISM; J91.8 - PLEURAL EFFUSION IN OTHER CONDITIONS CLASSIFIED ELSEWHERE Comment/Plan: Patient admitted to the hospital due to large left pleural effusion associated with what now looks like bilateral pneumonia. Antibiotics have been broadened to Levaquin, Zosyn. Vancomycin initiated, but discontinued due to acute kidney injury. Supplemental oxygen as needed. Echocardiogram without pericardial effusion. Now status post thoracentesis, labs consistent with exudative effusion. With no organisms on Gram stain. (2) Anemia Acute D64.9 - ANEMIA, UNSPECIFIED Qualifiers: Anemia type: unspecified type Qualified Code(s): D64.9 - Anemia, unspecified Comment/Plan: Microcytic. Will check anemia panel, suspect strongly that this is iron deficiency anemia due to her heavy periods. Never been worked up. She needs GI and Gynecology evaluation, can be done outpatient unless she becomes unstable. Especially due to her current respiratory status. (3) UTI (urinary tract infection) Acute N39.0 - URINARY TRACT INFECTION, SITE NOT SPECIFIED Qualifiers: Urinary tract infection type: acute cystitis Hematuria presence: with hematuria Qualified Code(s): N30.01 - Acute cystitis with hematuria Comment/Plan: CULTURE URINE, continue antibiotics & IV fluids. (4) Bacterial pneumonia Acute J15.9 - UNSPECIFIED BACTERIAL PNEUMONIA Comment/Plan: Patient returns with persistent pneumonia, pneumonitis and pleural effusion due to the infection. Will consult surgeon for thoracentesis. Antibiotics changed to avoid resistance. (5) GERD (gastroesophageal reflux disease) Acute K21.9 - GASTRO-ESOPHAGEAL REFLUX DISEASE WITHOUT ESOPHAGITIS Qualifiers: Esophagitis presence: without esophagitis Qualified Code(s): K21.9 - Gastro -esophageal reflux disease without esophagitis Comment/Plan: Continue PPI- Protonix Case Care Discussed with: Patient, Consultants Total Time: 41
[2016-08-07] MEDS ORDERED: NS 1,000 ML IV SCH (09:00)
[2016-08-07 10:43] LABS: AUTOMATED BASOPHIL 0.3 % (0-2); AUTOMATED EOSINOPHIL 0.1 % (0-5); AUTOMATED LYMPH 4.9 % (17-44); AUTOMATED MONOCYTE 6.6 % (3-10); AUTOMATED NEUTROPHIL 88.1 % (45-76); MPV 7.4 fL (7.4-10.4)
[2016-08-07 10:44] LABS: CALC CORRECTED 9.6 MG/DL (8.4-10.2); CALCIUM 8.2 MG/DL (8.4-10.2); CREATININE 2.3 MG/DL (0.52-1.04)
[2016-08-07] MEDS: DOCUSATE-SENNA CONCENTRATE TAB PO SCH ×2 (10:54→20:55)
[2016-08-07 11:02] LABS: % SATURATION 4.9 % (15-50)
[2016-08-07 11:23] LABS: hTSH 0.47 uIU/mL (0.5-4.67)
[2016-08-07 12:00] LABS: FOLATES 14.4 ng/mL (>2.76)
[2016-08-07] MEDS: NS 1,000 ML IV SCH (16:23)
[2016-08-07] MEDS: ENOXAPARIN 40 MG/0.4 ML PFS SQ SCH (16:24)
--- NOTE | 2016-08-07 17:21 | PCM.SURGRO ---
- Subjective Patient: Reports: Feels better, Pain is less, Shortness of breath (Improved.) - Objective / Physical Exam Vital Signs: Temperature: 98.3 F (08/07/16 15:31) HR: 73 (08/07/16 15:31)RR: 20 (08/07/16 15: 31) BP: 111/58 (08/07/16 15:31)Pulse Ox: 95 (08/07/16 15:31) General: Alert, Oriented x3, Cooperative HEENT: Normal, PERRLA, EOMI Respiratory: Diminished (Improved on the left side.), Rhonchi (Rhonchi in the base now on the left.) Cardiovascular: Regular rate, Regular rate and rhythm Gastrointestinal: Soft, Bowel Sounds. negative: Distended, Tender Back: negative: Abrasion, CVA Tenderness Extremities: negative: Swelling, Edema, Clubbing, Cyanosis Psych/Mental Status: Appropriate, Cooperative Neurological: Strength at 5/5 X4 ext, Cranial nerves 3-12 NL Skin: Warm,Dry and Intact, No rashes, No breakdown Lymphatics: Normal. negative: Adenopathy, Tender - Assessment and Plan (1) Pleural effusion associated with pulmonary infection Acute J18.9 - PNEUMONIA, UNSPECIFIED ORGANISM; J91.8 - PLEURAL EFFUSION IN OTHER CONDITIONS CLASSIFIED ELSEWHERE Present on Admission: Yes Comment/Plan: Now has breath sounds in the left base with few rhonchi. Continue pulmonary toilet. Will recheck chest x-ray. Effusion was exudative but serous. (2) Pneumonia Acute J18.9 - PNEUMONIA, UNSPECIFIED ORGANISM due to unspecified organism left lower lobe of lung J18.1 - Lobar pneumonia, unspecified organism Comment/Plan: On antibiotics. (3) Microcytic anemia Acute D50.9 - IRON DEFICIENCY ANEMIA, UNSPECIFIED Present on Admission: Yes Comment/Plan: Will need workup. (4) Pleurisy Resolved R09.1 - PLEURISY Present on Admission: Yes Comment/Plan: Pain improved.
[2016-08-08] MEDS: PIPERACILLIN AND TAZOBACTAM 3.375 GM in D5W 100 ML IV SCH ×4 (03:02→21:17)
[2016-08-08] MEDS: NS 1,000 ML IV SCH ×3 (03:02→21:12)
[2016-08-08] MEDS: SODIUM CHLORIDE 0.9% 3 ML FLUSH FLUSH SCH ×2 (05:27→17:06)
[2016-08-08] MEDS: PANTOPRAZOLE 40 MG TAB PO SCH ×2 (05:27→18:17)
[2016-08-08] MEDS: ACETAMINOPHEN 325 MG/TAB TABLET PO PRN ×3 (05:32→21:21)
[2016-08-08 06:25] LABS: MPV 7.2 fL (7.4-10.4)
[2016-08-08 06:40] LABS: BLOOD UREA NITROGEN 12 MG/DL (7-17); CALCIUM 8.2 MG/DL (8.4-10.2); CALCULATED OSMOLALITY 262 MOs/Kg (270-290); CHLORIDE 102 mEq/L (98-107); GLUCOSE 99 MG/DL (70-99); SODIUM LEVEL 136 mEq/L (137-146)
--- NOTE | 2016-08-08 08:32 | DIRPT ---
CLINICAL DATA: Pneumonia. EXAM: CHEST 2 VIEW COMPARISON: 08/06/2016 FINDINGS: The cardiomediastinal silhouette is unchanged. Small right and moderate left pleural effusions have not significantly changed. Left mid and lower lung parenchymal consolidation/atelectasis persists. No right lung consolidation. No pneumothorax. No acute osseous abnormality. IMPRESSION: 1. Moderate left pleural effusion and adjacent airspace consolidation/atelectasis, unchanged. 2. Unchanged, small right pleural effusion. Electronically Signed By: Richard Plata M.D. On: 08/08/2016 08:30
[2016-08-08] MEDS: FLUTICASONE/SALMETEROL 250/50 DISKUS INH SCH ×2 (08:44→20:04)
--- NOTE | 2016-08-08 08:52 | GENMEDPROG ---
Chief Complaint: Left pleural effusion, acute kidney injury Subjective Note: Feeling better today overall, feels that her breathing is better and chest pain is less. Has no acute complaints. Now on room air, but does still get winded with ambulation to the bathroom. Notes Reviewed: Yes Events from last night noted and discussed with Clinical Staff Current Medication List: Reviewed Currently: Reports: Cough, Wheezing, ZAMORA DVT Prophylaxis: Yes - Physical Examination Vital Signs and I&O: Last Vital Signs Temp 98.3 F 08/08/16 07:40 Pulse 73 08/08/16 07:40 Resp 18 08/08/16 07:40 BP 112/54 L 08/08/16 07:40 Pulse Ox 94 08/08/16 08:00 Oxygen Pulse Oxygen Saturation 94 O2 Device Room Air Oxygen Flow Rate 1 Fraction of Inspired Oxygen ( FIO2) Intake & Output 08/06/16 08/07/16 08/08/16 08/09/16 06:59 06:59 06:59 06:59 Intake Total 119 1442 3398 Output Total 3600 1600 Balance -3481 -158 3398 Patient's weight 88.042 kg 88.813 kg 90.038 kg General: Alert, Oriented x3, Cooperative HEENT: Normal, PERRLA, EOMI Lymphatics: Normal. negative: Adenopathy, Tender Respiratory: Diminished (Improved on the left side.), Rhonchi (Rhonchi in the base now on the left.) Cardiovascular: Regular rate, Regular rate and rhythm Extremities/Musculoskeletal: negative: Swelling, Edema, Clubbing, Cyanosis Skin: Warm,Dry and Intact, No rashes, No breakdown Psych/Mental Status: Appropriate, Cooperative - Assessment (1) Pleural effusion associated with pulmonary infection Acute J18.9 - PNEUMONIA, UNSPECIFIED ORGANISM; J91.8 - PLEURAL EFFUSION IN OTHER CONDITIONS CLASSIFIED ELSEWHERE Comment/Plan: Patient admitted to the hospital due to large left pleural effusion associated with what now looks like bilateral pneumonia. Antibiotics were broadened to Levaquin, Zosyn and vancomycin. Now she is on Zosyn only.. Vancomycin was discontinued due to acute kidney injury. Supplemental oxygen as needed. Echocardiogram without pericardial effusion. Now status post thoracentesis, labs consistent with exudative effusion. With no organisms on Gram stain. (2) Anemia Acute D64.9 - ANEMIA, UNSPECIFIED Qualifiers: Anemia type: unspecified type Qualified Code(s): D64.9 - Anemia, unspecified Comment/Plan: Microcytic. Anemia panel checked, other lab still pending, but consistent with iron deficiency. Stool guaiac is still pending. She needs GI and Gynecology evaluation, can be done outpatient unless she becomes unstable. Especially due to her current respiratory status. Will transfuse 2 units of blood today, mainly to improve renal perfusion in the setting of acute renal failure. Discussed with the patient, she is in agreement. (3) UTI (urinary tract infection) Acute N39.0 - URINARY TRACT INFECTION, SITE NOT SPECIFIED Qualifiers: Urinary tract infection type: acute cystitis Hematuria presence: with hematuria Qualified Code(s): N30.01 - Acute cystitis with hematuria Comment/Plan: CULTURE URINE, continue antibiotics & IV fluids. (4) Bacterial pneumonia Acute J15.9 - UNSPECIFIED BACTERIAL PNEUMONIA Comment/Plan: Patient returns with persistent pneumonia, pneumonitis and pleural effusion due to the infection. Will consult surgeon for thoracentesis. Antibiotics changed to avoid resistance. (5) GERD (gastroesophageal reflux disease) Acute K21.9 - GASTRO-ESOPHAGEAL REFLUX DISEASE WITHOUT ESOPHAGITIS Qualifiers: Esophagitis presence: without esophagitis Qualified Code(s): K21.9 - Gastro -esophageal reflux disease without esophagitis Comment/Plan: Continue PPI- Protonix (6) Acute renal failure Resolved N17.9 - ACUTE KIDNEY FAILURE, UNSPECIFIED Qualifiers: Acute renal failure type: unspecified Qualified Code(s): N17.9 - Acute kidney failure, unspecified Comment/Plan: Baseline normal renal function, creatinine bumps yesterday, and is worse today. Could be a combination of vancomycin toxicity (she had toxic level yesterday), poor renal for profusion from anemia, intravascular depletion related to infection. Continue hydration, increase to 150 cc/hour. Will transfuse 2 units of blood today to improve renal perfusion. Check renal ultrasound to rule out obstruction.
[2016-08-08] MEDS: GUAIFENESIN 600 MG LA TAB PO SCH ×2 (10:40→20:19)
[2016-08-08] MEDS: VITS,MINERALS,IRON TAB PO SCH (10:40)
[2016-08-08] MEDS: DOCUSATE-SENNA CONCENTRATE TAB PO SCH ×2 (10:41→20:18)
[2016-08-08] MEDS: PROBIOTIC BLEND TAB PO SCH (13:31)
--- NOTE | 2016-08-08 15:45 | PCM.SURGRO ---
- Subjective Patient: Reports: No new complaints, Feels better, Pain is less - Objective / Physical Exam Vital Signs: Temperature: 97.7 F (08/08/16 15:12) HR: 76 (08/08/16 15:12)RR: 18 (08/08/16 15: 12) BP: 136/69 (08/08/16 15:12)Pulse Ox: 96 (08/08/16 15:12) General: Alert, Oriented x3, Cooperative HEENT: Normal, PERRLA, EOMI Respiratory: Diminished (Left base.), Rhonchi (Left base.) Cardiovascular: Regular rate, Regular rate and rhythm Gastrointestinal: Soft, Bowel Sounds. negative: Distended, Tender Back: Normal. negative: Abrasion, CVA Tenderness Extremities: negative: Tenderness, Swelling, Edema, Clubbing, Cyanosis Psych/Mental Status: Appropriate, Cooperative Neurological: Strength at 5/5 X4 ext, Cranial nerves 3-12 NL Skin: Warm,Dry and Intact, No rashes, No breakdown Lymphatics: Normal. negative: Adenopathy, Tender - Assessment and Plan (1) Pleural effusion associated with pulmonary infection Acute J18.9 - PNEUMONIA, UNSPECIFIED ORGANISM; J91.8 - PLEURAL EFFUSION IN OTHER CONDITIONS CLASSIFIED ELSEWHERE Present on Admission: Yes Comment/Plan: 1 L drained 2 days ago. Still with large effusion on the left. Exudative effusion needs to be drained. Patient understands the need but was uncomfortable having it done on the floor because we could get pain medicine to her fast enough. Because of this I have recommended to be done either in Radiology if they can do it then we can do in the operating room. She understands and agrees. Would try to drain just with thoracentesis if not she would likely need a chest tube to prevent scarring and frozen lung. (2) Pneumonia Acute J18.9 - PNEUMONIA, UNSPECIFIED ORGANISM due to unspecified organism left lower lobe of lung J18.1 - Lobar pneumonia, unspecified organism Comment/Plan: On antibiotics. (3) Microcytic anemia Acute D50.9 - IRON DEFICIENCY ANEMIA, UNSPECIFIED Present on Admission: Yes Comment/Plan: Getting blood today. (4) Pleurisy Resolved R09.1 - PLEURISY Present on Admission: Yes Comment/Plan: Pain improved. Still with effusion.
[2016-08-08 16:01] LABS: BLOOD UREA NITROGEN 14 MG/DL (7-17); CALCIUM 8.5 MG/DL (8.4-10.2); CALCULATED OSMOLALITY 268 MOs/Kg (270-290); CHLORIDE 105 mEq/L (98-107); GLUCOSE 110 MG/DL (70-99); SODIUM LEVEL 138 mEq/L (137-146)
--- NOTE | 2016-08-08 16:08 | DIRPT ---
CLINICAL DATA: Patient with acute renal failure. Evaluate for obstruction. EXAM: RENAL / URINARY TRACT ULTRASOUND COMPLETE COMPARISON: None. FINDINGS: Right Kidney: Length: 14.9 cm. Echogenicity within normal limits. No mass or hydronephrosis visualized. Left Kidney: Length: 14.2 cm. Echogenicity within normal limits. No mass or hydronephrosis visualized. Bladder: Appears normal for degree of bladder distention. IMPRESSION: No hydronephrosis. Electronically Signed By: Benito Ambriz M.D. On: 08/08/2016 16:05
[2016-08-08 16:37] LABS: A1 GLOBULIN 0.5 g/dL (0.0-0.4); A2 GLOBULIN 0.8 g/dL (0.4-1.0); ALBUMIN (PE) 2.1 g/dL (2.9-4.4); TOTAL PROTEIN (PE) 5.5 g/dL (6.0-8.5)
[2016-08-08] MEDS: ONDANSETRON HCL 4 MG/2 ML VIAL IV PRN (17:02)
[2016-08-08] MEDS: MORPHINE 2 MG/ML INJECTION IV PRN (17:02)
[2016-08-08] MEDS: ENOXAPARIN 30 MG/0.3 ML PFS SQ SCH (18:17)
[2016-08-09] MEDS ORDERED: Levofloxacin 750 mg/150 ml D5W 750 MG/150 ML RTU IV SCH (02:00)
[2016-08-09] MEDS: PIPERACILLIN AND TAZOBACTAM 3.375 GM in D5W 100 ML IV SCH ×4 (04:28→19:20)
[2016-08-09] MEDS: SODIUM CHLORIDE 0.9% 3 ML FLUSH FLUSH SCH ×2 (04:28→18:23)
[2016-08-09] MEDS: NS 1,000 ML IV SCH ×3 (04:28→19:22)
[2016-08-09] MEDS: ACETAMINOPHEN 325 MG/TAB TABLET PO PRN ×3 (04:30→19:18)
[2016-08-09] MEDS: PANTOPRAZOLE 40 MG TAB PO SCH ×2 (04:31→18:23)
[2016-08-09 05:51] LABS: MPV 7.3 fL (7.4-10.4)
[2016-08-09 06:16] LABS: BLOOD UREA NITROGEN 15 MG/DL (7-17); CALCULATED OSMOLALITY 266 MOs/Kg (270-290); CHLORIDE 104 mEq/L (98-107); GLUCOSE 88 MG/DL (70-99); SODIUM LEVEL 138 mEq/L (137-146)
[2016-08-09] MEDS: DOCUSATE-SENNA CONCENTRATE TAB PO SCH ×2 (07:53→22:13)
[2016-08-09] MEDS: FLUTICASONE/SALMETEROL 250/50 DISKUS INH SCH ×2 (07:59→19:48)
--- NOTE | 2016-08-09 09:30 | GENMEDPROG ---
Chief Complaint: Bilateral pneumonia with effusion, acute kidney injury Subjective Note: Pulmonary status continues to improve, has very minimal chest pain, no shortness of breath at rest, but some dyspnea with exertion. She is worried about her renal function. She also now recalls that she has been diagnosed with uterine fibroids in the past. Notes Reviewed: Yes Events from last night noted and discussed with Clinical Staff Current Medication List: Reviewed Currently: Reports: Cough, Wheezing, ZAMORA DVT Prophylaxis: Yes - Physical Examination Vital Signs and I&O: Last Vital Signs Temp 98.1 F 08/09/16 04:00 Pulse 68 08/09/16 06:50 Resp 18 08/09/16 04:00 BP 125/63 08/09/16 04:00 Pulse Ox 98 08/09/16 08:01 Oxygen Pulse Oxygen Saturation 98 O2 Device Nasal Cannula Oxygen Flow Rate 2 Fraction of Inspired Oxygen ( FIO2) Intake & Output 08/07/16 08/08/16 08/09/16 08/10/16 06:59 06:59 06:59 06:59 Intake Total 1442 3398 4373 Output Total 1600 Balance -158 3398 4373 Patient's weight 88.813 kg 90.038 kg 90.945 kg General: Alert, Oriented x3, Cooperative HEENT: Normal, PERRLA, EOMI Neck: Normal Trachea alignment, Normal inspection Lymphatics: Normal. negative: Adenopathy, Tender Respiratory: Diminished (Left base.), Rhonchi (Left base.) Cardiovascular: Regular rate, Regular rate and rhythm GI: Normal bowel sounds, Soft, Non tender (non distended) Extremities/Musculoskeletal: negative: Tenderness, Swelling, Edema, Clubbing, Cyanosis Skin: Warm,Dry and Intact, No rashes, No breakdown Psych/Mental Status: Appropriate, Cooperative Lab/DI/Studies Reviewed: Laboratory Tests 08/07/16 08/07/16 08/07/16 07:01 10:15 10:15 WBC Hgb 8.3 L Potassium Creatinine 2.30 H Iron 15.0 L TIBC 303 % Saturation 4.9 L Ferritin 57.1 08/07/16 08/08/16 08/08/16 10:15 05:25 05:25 WBC 16.2 H Hgb 8.0 L 7.6 L Potassium 3.8 Creatinine 3.50 H D Iron TIBC % Saturation Ferritin 08/08/16 08/08/16 08/09/16 10:01 15:43 04:40 WBC Hgb 7.7 L Potassium Creatinine 3.80 H 4.10 H Iron TIBC % Saturation Ferritin 08/09/16 04:40 WBC Hgb 9.6 L Potassium Creatinine Iron TIBC % Saturation Ferritin - Assessment (1) Pleural effusion associated with pulmonary infection Acute J18.9 - PNEUMONIA, UNSPECIFIED ORGANISM; J91.8 - PLEURAL EFFUSION IN OTHER CONDITIONS CLASSIFIED ELSEWHERE Comment/Plan: Patient admitted to the hospital due to large left pleural effusion associated with what now looks like bilateral pneumonia. Antibiotics were broadened to Levaquin, Zosyn and vancomycin. Now she is on Zosyn only. Vancomycin was discontinued due to acute kidney injury. Supplemental oxygen as needed. Echocardiogram without pericardial effusion. Now status post thoracentesis, labs consistent with exudative effusion. With no organisms on Gram stain. Plan is in place for another thoracentesis today in Radiology. Discussed at length with Dr. Esquivel yesterday. (2) Anemia Acute D64.9 - ANEMIA, UNSPECIFIED Qualifiers: Anemia type: unspecified type Qualified Code(s): D64.9 - Anemia, unspecified Comment/Plan: Microcytic. Anemia panel checked, other lab still pending, but consistent with iron deficiency. She has a prior diagnosis of fibroids, this is the likely cause of her anemia. Will need creel cleaner evaluation once her pneumonia is improved. Was transfused 2 units of PRBCs on August 08, tolerated well with good hemoglobin response. (3) UTI (urinary tract infection) Acute N39.0 - URINARY TRACT INFECTION, SITE NOT SPECIFIED Qualifiers: Urinary tract infection type: acute cystitis Hematuria presence: with hematuria Qualified Code(s): N30.01 - Acute cystitis with hematuria Comment/Plan: CULTURE URINE, continue antibiotics & IV fluids. (4) Bacterial pneumonia Acute J15.9 - UNSPECIFIED BACTERIAL PNEUMONIA Comment/Plan: Patient returns with persistent pneumonia, pneumonitis and pleural effusion due to the infection. Will consult surgeon for thoracentesis. Antibiotics changed to avoid resistance. (5) GERD (gastroesophageal reflux disease) Acute K21.9 - GASTRO-ESOPHAGEAL REFLUX DISEASE WITHOUT ESOPHAGITIS Qualifiers: Esophagitis presence: without esophagitis Qualified Code(s): K21.9 - Gastro -esophageal reflux disease without esophagitis Comment/Plan: Continue PPI- Protonix (6) Acute renal failure Resolved N17.9 - ACUTE KIDNEY FAILURE, UNSPECIFIED Qualifiers: Acute renal failure type: unspecified Qualified Code(s): N17.9 - Acute kidney failure, unspecified Comment/Plan: Baseline normal renal function, creatinine bumped the day after admission. She had elevated vancomycin level at 29. Continues to have good urine output, likely due to severe pneumonia and vancomycin. Rate of rise is starting to decline. Case was discussed this morning with Dr. Reno of [facility], he agrees this is most likely ATN, recommends rechecking vancomycin level today, but has no other recommendations currently. If urine output falls off, she becomes fluid overloaded or creatinine continues to worsen significantly, she may eventually need to be transferred to [facility] for dialysis.
[2016-08-09] MEDS ORDERED: GUAIFENESIN 600 MG LA TAB PO PRN (10:24)
--- NOTE | 2016-08-09 11:55 | PCM.SURGRO ---
- Subjective Patient: Reports: Feels better (But tearful because elevated creatinine.), Pain is less, Shortness of breath (Improved.) - Objective / Physical Exam Vital Signs: Temperature: 98.1 F (08/09/16 09:36) HR: 68 (08/09/16 09:36)RR: 18 (08/09/16 09: 36) BP: 130/65 (08/09/16 09:36)Pulse Ox: 93 (08/09/16 09:36) General: Alert, Oriented x3, Cooperative HEENT: Normal, PERRLA, EOMI Respiratory: Diminished (Left base.), Rhonchi (Left base.) Cardiovascular: Regular rate, Regular rate and rhythm Gastrointestinal: Soft, Bowel Sounds. negative: Distended, Tender Back: Normal. negative: Abrasion, CVA Tenderness Extremities: negative: Swelling, Edema, Clubbing, Cyanosis Psych/Mental Status: Appropriate, Cooperative, Other (Tearful because of elevated creatinine.) Neurological: Strength at 5/5 X4 ext, Cranial nerves 3-12 NL Skin: Warm,Dry and Intact, No rashes, No breakdown Lymphatics: Normal. negative: Adenopathy, Tender - Assessment and Plan (1) Pleural effusion associated with pulmonary infection Acute J18.9 - PNEUMONIA, UNSPECIFIED ORGANISM; J91.8 - PLEURAL EFFUSION IN OTHER CONDITIONS CLASSIFIED ELSEWHERE Present on Admission: Yes Comment/Plan: For thoracentesis in Radiology so she can get sedated. Needs to have fluid removed to prevent loculation. Overall she feels much better but is tearful because of her elevated creatinine. May need transfer if renal function not improved. Discussed with medicine, no need for surgical intervention at this point. (2) Pneumonia Acute J18.9 - PNEUMONIA, UNSPECIFIED ORGANISM due to unspecified organism left lower lobe of lung J18.1 - Lobar pneumonia, unspecified organism Comment/Plan: On antibiotics. (3) Microcytic anemia Acute D50.9 - IRON DEFICIENCY ANEMIA, UNSPECIFIED Present on Admission: Yes Comment/Plan: Transfuse yesterday, hemoglobin up. (4) Pleurisy Resolved R09.1 - PLEURISY Present on Admission: Yes Comment/Plan: Pain improved.
--- NOTE | 2016-08-09 11:57 | DIRPT ---
CLINICAL DATA: Post left thoracentesis EXAM: CHEST 1 VIEW COMPARISON: 08/08/2016 FINDINGS: Continued large left pleural effusion. No pneumothorax following thoracentesis. Left lower lobe atelectasis present. No confluent opacity on the right. Heart is likely borderline in size. IMPRESSION: Continued large left pleural effusion. No pneumothorax following thoracentesis. Electronically Signed By: Jose Campoverde M.D. On: 08/09/2016 11:55
[2016-08-09] MEDS: PROBIOTIC BLEND TAB PO SCH (12:39)
--- NOTE | 2016-08-09 14:59 | DIRPT ---
CLINICAL DATA: 51-year-old female with a history of pleural effusion. EXAM: ULTRASOUND GUIDED LEFT THORACENTESIS COMPARISON: None. PROCEDURE: An ultrasound guided thoracentesis was thoroughly discussed with the patient and questions answered. The benefits, risks, alternatives and complications were also discussed. The patient understands and wishes to proceed with the procedure. Written consent was obtained. Ultrasound was performed to localize and alisha an adequate pocket of fluid in the left chest. The area was then prepped and draped in the normal sterile fashion. 1% Lidocaine was used for local anesthesia. Under ultrasound guidance a Ervo-[id number]-Zlmrrhfg catheter was introduced. Thoracentesis was performed. The catheter was removed and a dressing applied. COMPLICATIONS: None FINDINGS: A total of approximately 300 cc of thin yellow fluid was removed. A fluid sample was notsent for laboratory analysis. IMPRESSION: Status post left-sided ultrasound-guided thoracentesis. 300 cc of fluid removed. Signed, Naren Carreon DO [facility] Electronically Signed By: Naren Carreon D.O. On: 08/09/2016 14:56
[2016-08-09] MEDS: VITS,MINERALS,IRON TAB PO SCH ×2 (16:26→18:22)
[2016-08-09] MEDS: GUAIFENESIN 600 MG LA TAB PO SCH (16:27)
[2016-08-09] MEDS: ENOXAPARIN 30 MG/0.3 ML PFS SQ SCH (18:23)
[2016-08-10] MEDS: ACETAMINOPHEN 325 MG/TAB TABLET PO PRN ×3 (03:27→18:12)
[2016-08-10] MEDS: NS 1,000 ML IV SCH ×2 (03:29→08:57)
[2016-08-10] MEDS: PIPERACILLIN AND TAZOBACTAM 3.375 GM in D5W 100 ML IV SCH ×3 (03:30→20:57)
[2016-08-10 04:56] LABS: MPV 7.1 fL (7.4-10.4)
[2016-08-10 05:15] LABS: BLOOD UREA NITROGEN 18 MG/DL (7-17); CALCULATED OSMOLALITY 270 MOs/Kg (270-290); CHLORIDE 108 mEq/L (98-107); GLUCOSE 98 MG/DL (70-99); SODIUM LEVEL 139 mEq/L (137-146)
[2016-08-10] MEDS: PANTOPRAZOLE 40 MG TAB PO SCH ×2 (07:02→17:44)
[2016-08-10] MEDS: SODIUM CHLORIDE 0.9% 3 ML FLUSH FLUSH SCH ×2 (07:15→17:44)
[2016-08-10] MEDS: FLUTICASONE/SALMETEROL 250/50 DISKUS INH SCH ×2 (07:37→19:45)
[2016-08-10] MEDS: DOCUSATE-SENNA CONCENTRATE TAB PO SCH ×2 (08:57→21:05)
--- NOTE | 2016-08-10 09:27 | GENMEDPROG ---
Chief Complaint: L PLEURAL EFFUSION, LLL PNEUMONIA, DYSPNEA, COMPA, Currently: Reports: Cough, Wheezing, ZAMORA DVT Prophylaxis: Yes - Physical Examination Vital Signs and I&O: Last Vital Signs Temp 98.1 F 08/10/16 08:57 Pulse 75 08/10/16 08:57 Resp 18 08/10/16 08:57 BP 140/61 08/10/16 08:57 Pulse Ox 94 08/10/16 08:57 Oxygen Pulse Oxygen Saturation 94 O2 Device Room Air Oxygen Flow Rate 2 Fraction of Inspired Oxygen ( FIO2) Intake & Output 08/07/16 08/08/16 08/09/16 08/10/16 23:59 23:59 23:59 23:59 Intake Total 2397 3694 4150 1381 Output Total 500 800 Balance 2397 3694 3650 581 Patient's weight 88.813 kg 90.038 kg 90.945 kg 91.229 kg General: Alert, Oriented x3, Cooperative HEENT: Normal, PERRLA, EOMI Neck: Non-tender, Full range of motion, Normal Trachea alignment, Normal inspection Lymphatics: Normal. negative: Adenopathy, Tender Respiratory: Diminished (Left base.), Rales (apex & perihilar area left, and thru-out right lung), Rhonchi (right base.) Cardiovascular: Regular rate, Regular rate and rhythm GI: Normal bowel sounds, Soft, Non tender Extremities/Musculoskeletal: Normal pulses. negative: Swelling, Edema, Clubbing , Cyanosis Skin: Warm,Dry and Intact, No rashes, No breakdown Neurological: Normal speech, Strength at 5/5 X4 ext, Normal tone, Cranial nerves 3-12 NL Psych/Mental Status: Appropriate, Normal Affect, Cooperative, Other (Tearful because of elevated creatinine.) Lab/DI/Studies Reviewed: Laboratory Tests 08/10/16 08/10/16 04:12 04:12 WBC 11.3 H Hgb 9.0 L Hct 27.9 L Plt Count 535 H Sodium 139 Potassium 4.3 Chloride 108 H Carbon Dioxide 18 L Anion Gap 17 H BUN 18 H Creatinine 4.30 H Estimated GFR (MDRD) 11 L Glucose 98 Calculated Osmolality 270 Calcium 8.0 L - Assessment (1) Pleural effusion associated with pulmonary infection Acute J18.9 - PNEUMONIA, UNSPECIFIED ORGANISM; J91.8 - PLEURAL EFFUSION IN OTHER CONDITIONS CLASSIFIED ELSEWHERE Comment/Plan: Patient admitted to the hospital due to large left pleural effusion associated with what now looks like bilateral pneumonia. Antibiotics were broadened to Levaquin, Zosyn and vancomycin. Now she is on Zosyn only. Vancomycin was discontinued due to acute kidney injury. Supplemental oxygen as needed. Echocardiogram without pericardial effusion. Now status post thoracentesis, labs consistent with exudative effusion. With no organisms on Gram stain. (2) Bacterial pneumonia Acute J15.9 - UNSPECIFIED BACTERIAL PNEUMONIA Comment/Plan: Patient returns with persistent pneumonia, pneumonitis and pleural effusion due to the infection. Consulted surgeon for thoracentesis. Dr. Esquivel plans to place pleurx catheter since effusion is recurrent. (3) Microcytic anemia Acute D50.9 - IRON DEFICIENCY ANEMIA, UNSPECIFIED Comment/Plan: Monitor counts, transfuse as needed and indicated.. Patient was advised that she will need outpatient fbi sharpshooter and GI evaluations (4) Acute renal failure Resolved N17.9 - ACUTE KIDNEY FAILURE, UNSPECIFIED Qualifiers: Acute renal failure type: with other specified pathological lesion Qualified Code(s): N17.8 - Other acute kidney failure Comment/Plan: Baseline normal renal function, creatinine alyson to 4.3, likely due to vancomycin toxicity. She had elevated vancomycin level at 29. Continues to have good urine output, likely due to severe pneumonia and vancomycin. Will start low dose bicarb infusion, keep patient well hydrated and avoid all nephrotoxins. Avoid fluid overload. (5) GERD (gastroesophageal reflux disease) Acute K21.9 - GASTRO-ESOPHAGEAL REFLUX DISEASE WITHOUT ESOPHAGITIS Qualifiers: Esophagitis presence: without esophagitis Qualified Code(s): K21.9 - Gastro -esophageal reflux disease without esophagitis Comment/Plan: Continue PPI- Protonix (6) UTI (urinary tract infection) Ruled-out N39.0 - URINARY TRACT INFECTION, SITE NOT SPECIFIED Qualifiers: Urinary tract infection type: acute cystitis Hematuria presence: with hematuria Qualified Code(s): N30.01 - Acute cystitis with hematuria Comment/Plan: URINE C&S- negative Case Care Discussed with: Patient Education/Counseling Given To: Patient Education/Counseling Given Regarding: Diagnosis, Treatment, Prognosis Total Time: 35 min
--- NOTE | 2016-08-10 10:46 | DIRPT ---
CLINICAL DATA: Follow-up pleural effusion, thoracentesis. Shortness of breath. Left-sided chest pain and back pain. EXAM: PORTABLE CHEST 1 VIEW COMPARISON: 08/09/2016 FINDINGS: There is persistent significant opacity within the left hemithorax, consistent with pleural effusion and some component of parenchymal opacity. No pneumothorax identified. There is a small right pleural effusion. Otherwise the right lung has a normal appearance. The cardiac margins are obscured. IMPRESSION: Stable appearance of left opacity. Electronically Signed By: Argentina Pinto M.D. On: 08/10/2016 10:43
[2016-08-10] MEDS: SODIUM BICARBONATE 150 MEQ in WATER 1,000 ML IV SCH ×3 (10:59→23:52)
[2016-08-10] MEDS: PROBIOTIC BLEND TAB PO SCH (11:01)
--- NOTE | 2016-08-10 13:31 | PCM.SURGRO ---
- Subjective Patient: Reports: No new complaints, Feels better, Pain is less - Objective / Physical Exam Vital Signs: Temperature: 98.7 F (08/10/16 12:22) HR: 74 (08/10/16 12:22)RR: 18 (08/10/16 12: 22) BP: 149/72 (08/10/16 12:22)Pulse Ox: 93 (08/10/16 12:22) General: Alert, Oriented x3, Cooperative HEENT: Normal, PERRLA, EOMI Respiratory: Diminished, Rhonchi Cardiovascular: Regular rate, Regular rate and rhythm Gastrointestinal: Soft, Bowel Sounds. negative: Distended, Tender Back: Normal, Ecchymosis Extremities: negative: Tenderness, Swelling, Edema, Clubbing, Cyanosis Psych/Mental Status: Appropriate, Cooperative Neurological: Strength at 5/5 X4 ext, Cranial nerves 3-12 NL Skin: Warm,Dry and Intact, No rashes, No breakdown Lymphatics: Normal. negative: Adenopathy, Tender - Assessment and Plan (1) Pleural effusion associated with pulmonary infection Acute J18.9 - PNEUMONIA, UNSPECIFIED ORGANISM; J91.8 - PLEURAL EFFUSION IN OTHER CONDITIONS CLASSIFIED ELSEWHERE Present on Admission: Yes Comment/Plan: Only 300 cc plueral fluid removed by IR with large effusion remaining. Needs fluid removed. Explained the risks and benefits of chest tube and recommend pleurex cath if possible. Patient agrees. Will arrange. Continue hydration for Kidneys. (2) Pneumonia Acute J18.9 - PNEUMONIA, UNSPECIFIED ORGANISM due to unspecified organism left lower lobe of lung J18.1 - Lobar pneumonia, unspecified organism Comment/Plan: Continue ABx. (3) Microcytic anemia Acute D50.9 - IRON DEFICIENCY ANEMIA, UNSPECIFIED Present on Admission: Yes Comment/Plan: Transfused. (4) Pleurisy Resolved R09.1 - PLEURISY Present on Admission: Yes Comment/Plan: Improved.
[2016-08-10] MEDS: VITS,MINERALS,IRON TAB PO SCH (17:45)
[2016-08-10] MEDS: OXYCODONE HCL 5 MG TABLET PO PRN (22:02)
[2016-08-11] MEDS: SODIUM CHLORIDE 0.9% 3 ML FLUSH FLUSH SCH ×2 (04:54→17:23)
[2016-08-11] MEDS: PANTOPRAZOLE 40 MG TAB PO SCH ×2 (04:54→17:22)
[2016-08-11 05:09] LABS: MPV 7.2 fL (7.4-10.4)
[2016-08-11] MEDS: PIPERACILLIN AND TAZOBACTAM 3.375 GM in D5W 100 ML IV SCH (05:23)
[2016-08-11 05:28] LABS: BLOOD UREA NITROGEN 21 MG/DL (7-17); CALCULATED OSMOLALITY 270 MOs/Kg (270-290); CHLORIDE 108 mEq/L (98-107); GLUCOSE 81 MG/DL (70-99); SODIUM LEVEL 139 mEq/L (137-146)
[2016-08-11] MEDS: FLUTICASONE/SALMETEROL 250/50 DISKUS INH SCH ×2 (08:55→20:25)
[2016-08-11] MEDS ORDERED: BUPIVACAINE 0.25%-EPINEPHRINE 1:200,000 30 ML ONE (09:35)
[2016-08-11] MEDS ORDERED: HYDROmorphone 1 MG INJECTION IV PRN ×3 (09:50→10:41)
[2016-08-11] MEDS ORDERED: ONDANSETRON HCL 4 MG ODT TAB PO PRN (09:50)
[2016-08-11] MEDS ORDERED: LABETALOL 20 MG/4 ML SYRINGE IV PRN (09:50)
[2016-08-11] MEDS ORDERED: MEPERIDINE 25 MG/ML TUBEX IV PRN (09:50)
[2016-08-11] MEDS ORDERED: ONDANSETRON HCL 4 MG/2 ML VIAL IV PRN (09:50)
[2016-08-11] MEDS ORDERED: FENTANYL 100 MCG/2 ML VIAL IV PRN ×2 (09:50)
[2016-08-11] MEDS ORDERED: hydrALAZINE 20 MG/ML VIAL IV PRN (09:50)
--- NOTE | 2016-08-11 09:51 | HIM.ANES ---
Anesthesia Evaluation & Plan - Focused Review of Systems Now: No Cardiac History: No: Hx Cardiac Disorders HEENT: Yes: Hx Vision Problem (GLASSES, READING) Respiratory: Yes: Hx Pneumonia (10 days ago) No: Hx Asthma Neurological/Musculoskeletal: No: HX Cerebrovascular Accident, Hx Seizures Physiological: No Hx Depression Blood/Autoimmune: Yes: Hx Anemia No: Hx Blood Transfusions Smoking Status: Never smoker Past Social History: Denies: Alcohol Use, Substance Use Disorder Surgical History: Yes: T&A, Other () - Focused Physical Exam Mallampati: Class II Thyromental Distance: Greater than 3 Neck: Full Range of Motion Dental: Normal - no significant findings Cardiovascular/Chest: Normal Respiratory: Lungs clear Other: Problem List Problem Status Onset Anemia Acute Pleural effusion associated with pulmonary infection Acute Bacterial pneumonia Acute GERD (gastroesophageal reflux disease) Acute Microcytic anemia Acute Pneumonia Acute Respiratory insufficiency Acute Sepsis Acute PT/PTT/INR/ PT 11.7 SEC (9.2-11.2) H 08/06/16 06:05 INR 1.1 08/06/16 06:05 APTT 27.3 SEC (22-35) 08/05/16 15:55 CBC/BMP/Other 08/11/16 04:25 08/11/16 04:25 Allergies Allergy/AdvReac Type Severity Reaction Status Date / Time No Known Allergies Allergy Verified 08/05/16 15:11 Home Medications Medication Instructions Recorded Last Taken Type Acetaminophen with Codeine 5 ml PO Q4-6H PRN #120 ml 07/30/16 Unknown Rx [TYLENOL WITH CODEINE; [employer] with Codeine] Ibuprofen 600 mg PO TID #20 tablet 07/30/16 08/05/16 Rx Amoxicillin/Potassium Clav 1 each PO BID(LAUREN) #16 tablet 07/31/16 08/05/16 Rx [Augmentin 875-125 Tablet] Fluticasone/Salmeterol [Advair 1 inh INH BID #1 inhaler 07/31/16 08/05/16 Rx 250-50] Guaifenesin [Mucinex] 1,200 mg PO BID #20 tbmp.12hr 07/31/16 08/05/16 Rx L.acidoph/B.animalis/B.longum 460 mg PO DAILY #60 capsule 07/31/16 08/05/16 Rx [Florajen3 Capsule] Levalbuterol Tartrate [Xopenex Hfa] 200 puff IH Q4-6H PRN #1 hfa.aer.ad 08/05/16 Rx Levofloxacin [Levaquin] 750 mg PO DAILY #8 tablet 07/31/16 08/05/16 Rx Vitamins,Minerals,Iron [Hemocyte 1 each PO DAILY #30 tab 07/31/16 08/05/16 Rx Plus] Height and Weight Patient's height 5 ft 9 in Patient's weight 93.032 kg Weight (Calculated Kilograms) 93.032 BMI 29.7 Vital Signs Temperature 98.6 F 08/11/16 08:39 Pulse Rate 66 08/11/16 08:39 Respiratory Rate 20 08/11/16 08:39 Blood Pressure 143/67 08/11/16 08:39 Pulse Oxygen Saturation 92 08/11/16 08:39 METS - Level of Activity: Eating, Dressing, walking around house, dishwashing - Anesthetic Plan Anesthesia Type: MAC ASA Class: 3 -: I have examined this patient and reviewed the medical record. The patient has been assessed prior to anesthesia. Risks and benefits of anesthesia and anesthetic technique options have been discussed and all questions answered. The patient accepts the risk and desires me to proceed with the planned anesthetic.
[2016-08-11] MEDS ORDERED: ONDANSETRON HCL 4 MG/2 ML VIAL IV ONE (10:00)
[2016-08-11] MEDS ORDERED: FENTANYL 100 MCG/2 ML VIAL IV ONE (10:00)
[2016-08-11] MEDS ORDERED: MIDAZOLAM 2 MG/2 ML VIAL IV ONE (10:00)
[2016-08-11] MEDS ORDERED: PROPOFOL 200 MG/20 ML VIAL IV ONE (10:00)
[2016-08-11] MEDS ORDERED: KETAMINE 50 MG/ML SYRINGE IV ONE (10:00)
[2016-08-11] MEDS ORDERED: CODEINE PO PRN (10:38)
[2016-08-11] MEDS ORDERED: GUAIFEN PO PRN (10:38)
[2016-08-11] MEDS ORDERED: OXYCODONE HCL 5 MG TABLET PO PRN (10:40)
--- NOTE | 2016-08-11 10:45 | HIMOPRPT ---
DATE OF PROCEDURE: 08/11/16 PREOPERATIVE DIAGNOSES: Recurrent symptomatic left pleural effusion. POSTOPERATIVE DIAGNOSES: Same. PROCEDURES: Left PleurX catheter placement with ultrasound guidance. SURGEON: Fritz Esquivel MD ANESTHESIA: Moderate IV sedation with local anesthetic. COMPLICATIONS: None. ESTIMATED BLOOD LOSS: Minimal. ANTIBIOTICS: Preoperative antibiotics given. INDICATIONS: The patient is a pleasant 51-year-old female had severe pneumonia and parapneumonic effusion that had been drained twice and had recurred. We felt she would benefit from drainage and recommended PleurX catheter. We explained the risks and benefits of this to her including the possibility of needing a large-bore chest tube. She understood and agreed was brought for the above-mentioned procedure. OPERATIVE NOTE: The patient was brought to the operating room and placed on the operating table in the supine position. She was prepped and draped in the sterile manner. After appropriate time-out given the okay by anesthesia assured that the sedation was adequate we went ahead anesthetize the left chest with local anesthesia. Under ultrasound guidance large-bore needle was placed into the pleural space. Serous fluid was in countered. A guidewire was placed and the needle was removed. A counter incision was made and a catheter tunneled between the 2 sites. Over the guidewire dilator and dilator and sheath were placed and the dilator and guidewire removed and catheter was placed through the sheath without any difficulties. It was position and sutured the at the exit site with a nylon suture. The access site was closed with 3 0 Vicryl. Approximately 600 cc of serous fluid was aspirated and was hooked to bulb suction. The patient was awoke and taken recover room in excellent condition. Sponge counts needle counts were correct x2. Chest x-ray was ordered.
[2016-08-11] MEDS ORDERED: Acetaminophen, Intravenous 1,000 MG/100 ML IVBOT IV ONE (11:00)
[2016-08-11] MEDS: PROBIOTIC BLEND TAB PO SCH (11:24)
[2016-08-11] MEDS: VITS,MINERALS,IRON TAB PO SCH (11:25)
[2016-08-11] MEDS: DOCUSATE-SENNA CONCENTRATE TAB PO SCH ×2 (11:25→20:21)
--- NOTE | 2016-08-11 11:30 | GENMEDPROG ---
Chief Complaint: ARF, pleural effusion, bacterial pneumonia, iron def anemia, anxiety Subjective Note: Patient reports that her mother of breast cancer, it has been 4 years since she has had a mammogram. Her last pelvic exam and PAP were done 3 years ago. She has history of fibroid uterus. Current Medication List: Reviewed Currently: Reports: Cough, Wheezing, ZAMORA. Denies: Tobacco Use/Hx, Alcohol Hx DVT Prophylaxis: Yes - Physical Examination Vital Signs and I&O: Last Vital Signs Temp 99 F 08/11/16 11:28 Pulse 62 08/11/16 11:28 Resp 18 08/11/16 11:28 BP 134/64 08/11/16 11:28 Pulse Ox 94 08/11/16 11:28 Oxygen Pulse Oxygen Saturation 94 O2 Device Room Air Oxygen Flow Rate 3 Fraction of Inspired Oxygen ( 100 FIO2) Intake & Output 08/08/16 08/09/16 08/10/16 08/11/16 23:59 23:59 23:59 23:59 Intake Total 3694 4150 2101 1178 Output Total 500 1650 1602 Balance 3694 3650 451 -424 Patient's weight 90.038 kg 90.945 kg 91.229 kg 93.032 kg General: Alert, Oriented x3, Cooperative HEENT: Normal, PERRLA, EOMI Neck: Non-tender, Full range of motion, Normal Trachea alignment, Normal inspection Lymphatics: Normal. negative: Adenopathy, Tender Respiratory: Diminished (Left base.), Rales (apex & perihilar area left, and thru-out right lung), Rhonchi (right base.) Cardiovascular: Regular rate, Regular rate and rhythm GI: Normal bowel sounds, Soft, Non tender Extremities/Musculoskeletal: Normal pulses. negative: Swelling, Edema, Clubbing , Cyanosis Skin: Warm,Dry and Intact, No rashes, No breakdown Neurological: Normal speech, Strength at 5/5 X4 ext, Normal tone, Cranial nerves 3-12 NL Psych/Mental Status: Appropriate, Normal Affect, Cooperative, Other (Tearful because of elevated creatinine.) - Assessment (1) Pleural effusion associated with pulmonary infection Acute J18.9 - PNEUMONIA, UNSPECIFIED ORGANISM; J91.8 - PLEURAL EFFUSION IN OTHER CONDITIONS CLASSIFIED ELSEWHERE Comment/Plan: Patient admitted to the hospital due to large left pleural effusion. All cultures negative, no organisms seen on gram stain. Thoracentesis done twice by Dr. Esquivel. Fluid sent for additional studies. Will order CA-125. (2) Bacterial pneumonia Suspected J15.9 - UNSPECIFIED BACTERIAL PNEUMONIA Comment/Plan: Patient returns with persistent pneumonia, pneumonitis and pleural effusion due to the infection. Dr. Esquivel plans to place pleurx catheter since effusion is recurrent. Since all cultures are negative and no organisms were seen on any gram stains, patient has completed 6 days of IV antibiotics now plus the previous 7 day-course, will stop antibiotics. (3) Microcytic anemia Acute D50.9 - IRON DEFICIENCY ANEMIA, UNSPECIFIED Comment/Plan: Monitor counts, transfuse as needed and indicated.. Patient was advised that she will need outpatient standpipe tender and GI evaluations. Hg=8.7 (4) Acute renal failure Resolved N17.9 - ACUTE KIDNEY FAILURE, UNSPECIFIED Qualifiers: Acute renal failure type: with other specified pathological lesion Qualified Code(s): N17.8 - Other acute kidney failure Comment/Plan: Baseline normal renal function, creatinine alyson to 4.3, likely due to vancomycin toxicity. She had elevated vancomycin level at 29. Continues to have good urine output, renal function is improving. Continue low dose bicarb infusion, keep patient well hydrated and avoid all nephrotoxins. Avoid fluid overload. (5) GERD (gastroesophageal reflux disease) Acute K21.9 - GASTRO-ESOPHAGEAL REFLUX DISEASE WITHOUT ESOPHAGITIS Qualifiers: Esophagitis presence: without esophagitis Qualified Code(s): K21.9 - Gastro -esophageal reflux disease without esophagitis Comment/Plan: Continue PPI- Protonix (6) UTI (urinary tract infection) Inactive N39.0 - URINARY TRACT INFECTION, SITE NOT SPECIFIED Qualifiers: Urinary tract infection type: acute cystitis Hematuria presence: with hematuria Qualified Code(s): N30.01 - Acute cystitis with hematuria Comment/Plan: URINE C&S- negative
[2016-08-11] MEDS: SODIUM BICARBONATE 150 MEQ in WATER 1,000 ML IV SCH ×3 (11:31→22:56)
--- NOTE | 2016-08-11 11:45 | DIRPT ---
CLINICAL DATA: 51-year-old female with PleurX catheter placement for left pleural effusion. EXAM: PORTABLE CHEST 1 VIEW COMPARISON: 08/10/2016 FINDINGS: Faint outline of a catheter is noted along the medial left magdalena thorax with tip at the left apex -correlate clinically with position of PleurX catheter. Left pleural effusion is decreased in size. Improved aeration of the central left lung. Mild right basilar atelectasis and possible trace right pleural effusion noted. IMPRESSION: Catheter along the medial left magdalena thorax with tip at the left lung apex -correlate clinically position of placed PleurX catheter. No evidence of pneumothorax. Decreased left pleural effusion and improved left central lung aeration. Electronically Signed By: Mustapha Jameson M.D. On: 08/11/2016 11:42
[2016-08-11] MEDS: Acetaminophen, Intravenous 1,000 MG/100 ML IVBOT IV SCH ×2 (17:23→22:55)
[2016-08-11] MEDS: OXYCODONE HCL 5 MG TABLET PO PRN (20:20)
[2016-08-12 04:54] LABS: MPV 6.8 fL (7.4-10.4)
[2016-08-12 05:07] LABS: BLOOD UREA NITROGEN 22 MG/DL (7-17); CALCIUM 7.9 MG/DL (8.4-10.2); CALCULATED OSMOLALITY 270 MOs/Kg (270-290); CHLORIDE 102 mEq/L (98-107); GLUCOSE 83 MG/DL (70-99); SODIUM LEVEL 139 mEq/L (137-146)
[2016-08-12 05:10] VITALS: BMI 30.3
[2016-08-12] MEDS: Acetaminophen, Intravenous 1,000 MG/100 ML IVBOT IV SCH ×2 (05:40→11:00)
[2016-08-12] MEDS: PANTOPRAZOLE 40 MG TAB PO SCH ×2 (05:48→18:46)
[2016-08-12] MEDS: SODIUM CHLORIDE 0.9% 3 ML FLUSH FLUSH SCH ×2 (05:49→18:46)
[2016-08-12] MEDS: SODIUM BICARBONATE 150 MEQ in WATER 1,000 ML IV SCH ×2 (07:10→11:18)
[2016-08-12] MEDS: FLUTICASONE/SALMETEROL 250/50 DISKUS INH SCH ×2 (08:15→20:25)
[2016-08-12] MEDS: DOCUSATE-SENNA CONCENTRATE TAB PO SCH (08:40)
--- NOTE | 2016-08-12 09:33 | DIRPT ---
CLINICAL DATA: 51-year-old female with pleural effusion. Subsequent encounter. EXAM: CHEST 2 VIEW COMPARISON: 08/11/2016. FINDINGS: Catheter medial aspect left thorax tip at the apex unchanged in position. No pneumothorax. Similar appearance of left-sided pleural effusion and consolidation left mid 2 lower lobe. Pulmonary vascular prominence unchanged. Minimal blunting right costophrenic angle stable. Limited evaluation of heart size. IMPRESSION: No significant change. Catheter medial aspect left thorax with tip at the apex. No pneumothorax. Similar appearance of left-sided pleural effusion and consolidation left mid to lower lobe. Electronically Signed By: Sai Chandler M.D. On: 08/12/2016 09:31
[2016-08-12] MEDS: PROBIOTIC BLEND TAB PO SCH (11:19)
--- NOTE | 2016-08-12 13:43 | PCM.SURGRO ---
- Subjective Patient: Reports: No new complaints, Feels better, Pain is less - Objective / Physical Exam Vital Signs: Temperature: 98.2 F (08/12/16 11:59) HR: 71 (08/12/16 13:05)RR: 18 (08/12/16 11: 59) BP: 141/64 (08/12/16 11:59)Pulse Ox: 93 (08/12/16 11:59) General: Alert, Oriented x3, Cooperative HEENT: Normal, PERRLA, EOMI Respiratory: Diminished (Improved.), Rhonchi (Improved.) Cardiovascular: Regular rate, Regular rate and rhythm Gastrointestinal: Soft, Bowel Sounds. negative: Distended, Tender Back: Normal. negative: Abrasion, Ecchymosis, Laceration, CVA Tenderness Extremities: negative: Tenderness, Swelling, Edema, Clubbing, Cyanosis Psych/Mental Status: Appropriate, Normal Affect, Cooperative Neurological: Strength at 5/5 X4 ext, Cranial nerves 3-12 NL Skin: Warm,Dry and Intact, No rashes, No breakdown Lymphatics: Normal. negative: Adenopathy, Tender - Assessment and Plan (1) Pleural effusion associated with pulmonary infection Acute J18.9 - PNEUMONIA, UNSPECIFIED ORGANISM; J91.8 - PLEURAL EFFUSION IN OTHER CONDITIONS CLASSIFIED ELSEWHERE Present on Admission: Yes Comment/Plan: Improved. Showed patient how to drain fluid via pleurex cath. 100cc drained. Patient will continue to ambulate and drain fluid as she tolerates. (2) Pneumonia Acute J18.9 - PNEUMONIA, UNSPECIFIED ORGANISM due to unspecified organism left lower lobe of lung J18.1 - Lobar pneumonia, unspecified organism Comment/Plan: On ABx. (3) Microcytic anemia Acute D50.9 - IRON DEFICIENCY ANEMIA, UNSPECIFIED Present on Admission: Yes Comment/Plan: Improved after transfusion. (4) Pleurisy Resolved R09.1 - PLEURISY Present on Admission: Yes Comment/Plan: Improved.
--- NOTE | 2016-08-12 14:33 | GENMEDPROG ---
Currently: Reports: Cough, Wheezing, ZAMORA. Denies: Tobacco Use/Hx, Alcohol Hx DVT Prophylaxis: Yes - Physical Examination Vital Signs and I&O: Last Vital Signs Temp 98.2 F 08/12/16 11:59 Pulse 71 08/12/16 13:05 Resp 18 08/12/16 11:59 BP 141/64 08/12/16 11:59 Pulse Ox 93 08/12/16 11:59 Oxygen Pulse Oxygen Saturation 93 O2 Device Room Air Oxygen Flow Rate 3 Fraction of Inspired Oxygen ( 100 FIO2) Intake & Output 08/09/16 08/10/16 08/11/16 08/12/16 23:59 23:59 23:59 23:59 Intake Total 4150 2101 2871 1562 Output Total 500 1650 2452 1500 Balance 3650 451 419 62 Patient's weight 90.945 kg 91.229 kg 93.032 kg 93.157 kg General: Alert, Oriented x3, Cooperative HEENT: Normal, PERRLA, EOMI Neck: Non-tender, Full range of motion, Normal Trachea alignment, Normal inspection Lymphatics: Normal. negative: Adenopathy, Tender Respiratory: Diminished (Improved.), Rhonchi (Improved.) Cardiovascular: Regular rate, Regular rate and rhythm GI: Normal bowel sounds, Soft, Non tender Extremities/Musculoskeletal: negative: Tenderness, Swelling, Edema, Clubbing, Cyanosis Skin: Warm,Dry and Intact, No rashes, No breakdown Neurological: Normal speech, Strength at 5/5 X4 ext, Normal tone, Cranial nerves 3-12 NL Psych/Mental Status: Appropriate, Normal Affect, Cooperative Lab/DI/Studies Reviewed: PLEURAL FLUID CYTOLOGY: Patient Name: GABI LAZARO Acct:[id number] Specimen #: [id number] Laboratory Cytology Report [address]~ [id number] Laboratory Final Diagnosis Specimen Source: Pleural Fluid, Left Adequacy: Satisfactory for evaluation Diagnosis: No malignant cells identified Acute inflammatory cells present Dictated by: Alyssa Sanchez MD Date/Time: 08/08/16 - 1236 - Assessment (1) Pleural effusion associated with pulmonary infection Acute J18.9 - PNEUMONIA, UNSPECIFIED ORGANISM; J91.8 - PLEURAL EFFUSION IN OTHER CONDITIONS CLASSIFIED ELSEWHERE Comment/Plan: Patient admitted to the hospital due to large left pleural effusion. All cultures negative, no organisms seen on gram stain. Thoracentesis done twice by Dr. Esquivel. Fluid sent for CYTOLOGY: no malignant cells seen. CA-125: pending. (2) Bacterial pneumonia Suspected J15.9 - UNSPECIFIED BACTERIAL PNEUMONIA Comment/Plan: Patient returns with persistent pneumonia, pneumonitis and pleural effusion due to the infection. Dr. Esquivel plans to place pleurx catheter since effusion is recurrent. Since all cultures are negative and no organisms were seen on any gram stains, patient has completed 6 days of IV antibiotics now plus the previous 7 day-course, stopped antibiotics. (3) Microcytic anemia Acute D50.9 - IRON DEFICIENCY ANEMIA, UNSPECIFIED Comment/Plan: Monitor counts, transfuse as needed and indicated.. Patient was advised that she will need outpatient training and documentation specialist and GI evaluations. Hg=8.6 (4) Acute renal failure Acute N17.9 - ACUTE KIDNEY FAILURE, UNSPECIFIED Qualifiers: Acute renal failure type: with other specified pathological lesion Qualified Code(s): N17.8 - Other acute kidney failure Comment/Plan: Baseline normal renal function, creatinine alyson to 4.3, likely due to vancomycin toxicity. She had elevated vancomycin level at 29. Continues to have good urine output, renal function is minimally improved. Stop bicarb infusion, keep patient well hydrated and avoid all nephrotoxins. Avoid fluid overload. Still has creatinine of 4. Advised fluid bolus. (5) GERD (gastroesophageal reflux disease) Acute K21.9 - GASTRO-ESOPHAGEAL REFLUX DISEASE WITHOUT ESOPHAGITIS Qualifiers: Esophagitis presence: without esophagitis Qualified Code(s): K21.9 - Gastro -esophageal reflux disease without esophagitis Comment/Plan: Continue PPI- Protonix (6) UTI (urinary tract infection) Inactive N39.0 - URINARY TRACT INFECTION, SITE NOT SPECIFIED Qualifiers: Urinary tract infection type: acute cystitis Hematuria presence: with hematuria Qualified Code(s): N30.01 - Acute cystitis with hematuria Comment/Plan: URINE C&S- negative
[2016-08-12] MEDS ORDERED: LR 1,000 ML IV SCH ×2 (15:00→15:24)
[2016-08-12] MEDS ORDERED: LR 1,000 ML IV ONE (15:24)
[2016-08-12] MEDS: VITS,MINERALS,IRON TAB PO SCH (18:46)
[2016-08-12] MEDS: POTASSIUM CHLORIDE 20 MEQ TAB PO SCH (18:46)
[2016-08-12] MEDS: OXYCODONE HCL 5 MG TABLET PO PRN (19:28)
[2016-08-13] MEDS: DOCUSATE-SENNA CONCENTRATE TAB PO SCH ×2 (02:23→13:45)
[2016-08-13] MEDS: PANTOPRAZOLE 40 MG TAB PO SCH (02:23)
[2016-08-13] MEDS: SODIUM CHLORIDE 0.9% 3 ML FLUSH FLUSH SCH (02:26)
[2016-08-13 05:34] LABS: MPV 7.1 fL (7.4-10.4)
[2016-08-13 05:36] LABS: BLOOD UREA NITROGEN 23 MG/DL (7-17); CALCIUM 8.4 MG/DL (8.4-10.2); CALCULATED OSMOLALITY 269 MOs/Kg (270-290); CHLORIDE 100 mEq/L (98-107); GLUCOSE 79 MG/DL (70-99); SODIUM LEVEL 138 mEq/L (137-146)
[2016-08-13] MEDS: FLUTICASONE/SALMETEROL 250/50 DISKUS INH SCH (08:23)
--- NOTE | 2016-08-13 08:47 | PCM.SURGRO ---
- Subjective Patient: Reports: No new complaints, Feels better. Denies: Shortness of breath - Objective / Physical Exam Vital Signs: Temperature: 97.9 F (08/13/16 07:49) HR: 70 (08/13/16 07:49)RR: 18 (08/13/16 07: 49) BP: 164/71 (08/13/16 07:49)Pulse Ox: 93 (08/13/16 08:18) General: Alert, Oriented x3, Cooperative HEENT: Normal, PERRLA, EOMI Respiratory: Rhonchi. negative: Diminished Cardiovascular: Regular rate, Regular rate and rhythm Gastrointestinal: Soft, Bowel Sounds. negative: Distended, Tender Back: Normal. negative: Abrasion, CVA Tenderness Extremities: negative: Tenderness, Swelling, Edema, Clubbing, Cyanosis Psych/Mental Status: Appropriate, Cooperative Neurological: Strength at 5/5 X4 ext, Cranial nerves 3-12 NL Skin: Warm,Dry and Intact, No rashes, No breakdown Lymphatics: Normal. negative: Adenopathy, Tender - Assessment and Plan (1) Pleural effusion associated with pulmonary infection Acute J18.9 - PNEUMONIA, UNSPECIFIED ORGANISM; J91.8 - PLEURAL EFFUSION IN OTHER CONDITIONS CLASSIFIED ELSEWHERE Present on Admission: Yes Comment/Plan: Pleurex working well. Continue suction. Explained in detail to patient. Will follow up in office one week. (2) Pneumonia Acute J18.9 - PNEUMONIA, UNSPECIFIED ORGANISM due to unspecified organism left lower lobe of lung J18.1 - Lobar pneumonia, unspecified organism Comment/Plan: Improved. (3) Microcytic anemia Acute D50.9 - IRON DEFICIENCY ANEMIA, UNSPECIFIED Present on Admission: Yes Comment/Plan: Stable. (4) Pleurisy Resolved R09.1 - PLEURISY Present on Admission: Yes Comment/Plan: Improved.
--- NOTE | 2016-08-13 08:52 | PCM.DCS92 ---
- Final/Secondary Discharge Diagnosis (1) Pleural effusion associated with pulmonary infection Acute J18.9 - PNEUMONIA, UNSPECIFIED ORGANISM; J91.8 - PLEURAL EFFUSION IN OTHER CONDITIONS CLASSIFIED ELSEWHERE Present on Admission: Yes Comment: Patient admitted to the hospital due to large left pleural effusion. All cultures negative, no organisms seen on gram stain. Thoracentesis done twice by Dr. Esquivel, now has Pleurx catheter. Fluid sent for CYTOLOGY: no malignant cells seen. CA-125: pending. Dr. Esquivel will follow pleural effusion. (2) Bacterial pneumonia Suspected J15.9 - UNSPECIFIED BACTERIAL PNEUMONIA Present on Admission: Yes Comment: Patient returns with persistent pneumonia/pneumonitis and pleural effusion due to the infection. Dr. Esquivel placed pleurx catheter since effusion is recurrent. Since all cultures are negative and no organisms were seen on any gram stains, patient completed 6 days of IV antibiotics now, plus the previous 7 day-course, will not discharge on antibiotics. (3) Acute renal failure Acute N17.9 - ACUTE KIDNEY FAILURE, UNSPECIFIED Present on Admission: No with other specified pathological lesion N17.8 - Other acute kidney failure Comment: Baseline normal renal function (0.6), creatinine alyson to 4.3, likely due to vancomycin toxicity. She had elevated vancomycin level of 29. Continues to have good urine output, renal function is minimally improved. Received IV fluids & bicarb infusion, advised patient to stay well hydrated and avoid all nephrotoxins. Still has creatinine of 3.5. Advised increase of PO fluid intake , follow renal diet. (4) Microcytic anemia Acute D50.9 - IRON DEFICIENCY ANEMIA, UNSPECIFIED Present on Admission: Yes Comment: Patient had Hg of 9.7 on 07/30, dropped to 7.6 on 08/08/16 & transfused 2 units of PRBCs during this admission. Improved to Hg of 9.0 initially, currently 8.8 g/dL. Patient was advised that she will need outpatient rn ante partum and GI evaluations. May be due to sepsis and acute renal failure , or blood loss. (5) GERD (gastroesophageal reflux disease) Acute K21.9 - GASTRO-ESOPHAGEAL REFLUX DISEASE WITHOUT ESOPHAGITIS Present on Admission: Yes without esophagitis K21.9 - Gastro-esophageal reflux disease without esophagitis Comment: Continue PPI- Protonix Discharge Disposition: Home Discharge Condition: Improved Cognitive Discharge Status: Unimpaired Fuctional Discharge Status: Independent Physician Follow up/Referrals: Fritz Esquivel MD [Staff Physician] - [facility],Daniel Freeman MD [Primary Care Provider] - 1-2 weeks New Prescriptions: Acetaminophen with Codeine [Tylenol with Codeine Elixir] 5 ml PO Q4-6H PRN #120 ml PRN Reason: Pain Vitamins,Minerals,Iron [Hemocyte Plus] 1 each PO BID #60 tab Discharge Home Medication List Fluticasone/Salmeterol [Advair 250-50] 1 inh INH BID #1 inhaler 07/31/16 [Rx Confirmed 08/05/16 Last Taken 08/05/16] Guaifenesin [Mucinex] 1,200 mg PO BID #20 tbmp.12hr 07/31/16 [Rx Confirmed 08/05 Last Taken 08/05/16] L.acidoph/B.animalis/B.longum [Florajen3 Capsule] 460 mg PO DAILY #60 capsule [Rx Confirmed 08/05/16 Last Taken 08/05/16] Levalbuterol Tartrate [Xopenex Hfa] 200 puff IH Q4-6H PRN #1 hfa.aer.ad [Rx Confirmed 08/05/16 Last Taken 08/05/16] Acetaminophen with Codeine [Tylenol with Codeine Elixir] 5 ml PO Q4-6H PRN #120 ml 08/13/16 [Rx Last Taken Unknown] PEG-Electrolytes (Miralax) [Miralax] 17 gm PO BID PRN #1 pack 08/13/16 [Rx Last Taken Unknown] Vitamins,Minerals,Iron [Hemocyte Plus] 1 each PO BID #60 tab 08/13/16 [Rx Last Taken Unknown] O2 Device: Room Air Diet at Discharge: Heart Healthy, Other (renal) Activity: Other (see below) (do not return to work) Call Office For: Worsening Symptoms, Fever over 101 F, Pain Uncontrolled By Meds , Other (See Details) (Do not return to work for (estimated) 4 weeks, unless cleared for work earlier by Dr. Esquivel or Dr. Nur.) Discontinue use of:: Alcohol, All Types of Tobacco - DC Summary Notes Hospital Course Note:: Discharge summary on patient named YASMEEN VILLAGOMEZ admitted to [facility] on 08/05/16 by Alysia Rider MD. Date of discharge is [08/13/16]. Yasmeen Villagomez is a pleasant white female who was recently hospitalized with a left lower lobe pneumonia, discharged home on the 31 of July. She returns tonight complaining of worsening shortness of breath and cough with pain in her left ribs and left shoulder. She reports persistent coughing, although non-productive, and gradually worsening shortness of breath. She states she has done everything she was told to do; she used her incentive spirometer several times a day and has taken all of her medications as directed. In spite of this she has worsening fatigue and chest pain in her left lower ribs. Her CT of the chest tonight reveals a large left pleural effusion, with a small effusion on the right, and a small pericardial effusion also. Most likely this is a david-pneumonic effusion and is probably from a viral pneumonitis. However, the left sided pleural effusion is quite large and will likely need thoracentesis for definitive treatment. She is being admitted for further evaluation and management. Dr. Esquivel placed pleurx catheter since effusion is recurrent. Since all cultures are negative and no organisms were seen on any gram stains, patient completed 6 days of IV antibiotics now, plus the previous 7 day-course, will not discharge on antibiotics. She was initially placed on IV vancomycin, Levaquin and Cefepime, due to this being a recurrent infection and healthcare associated. Unfortunately she developed vancomycin toxicity, her baseline renal function is normal (creatinine 0.6), creatinine alyson to 4.3, likely due to vancomycin toxicity. She had an elevated vancomycin level of 29, but continues to have good urine output, although her renal function is minimally improved. She was initially treated with IV fluids & a bicarb infusion,and has improved somewhat. Patient had Hg of 9.7 on 07/30,which dropped to 7.6 on 08/08/16 & she was transfused 2 units of PRBCs during this admission. She improved to a Hg of 9.0 initially, and currently has a Hg of 8.8 g/dL. Patient was advised that she will need outpatient [employer] and GI evaluations. Her anemia may be due to sepsis and acute renal failure, or chronic blood loss. I advised the patient to stay well hydrated and avoid all nephrotoxins. She still has a creatinine of 3.5. Advised increase of PO fluid intake, and to follow a renal diet. She is to follow up with Dr. Esquivel in [address] uNr in 2 weeks. She will need follow up CXR and renal profile on return to clinic. Total Time: 30 min Code: 60997 (>30min.) - Physical Exam Vital Signs: Last Vital Signs Temp 97.9 F 08/13/16 07:49 Pulse 70 08/13/16 07:49 Resp 18 08/13/16 07:49 BP 164/71 08/13/16 07:49 Pulse Ox 93 08/13/16 08:18 Oxygen Pulse Oxygen Saturation 93 O2 Device Room Air Oxygen Flow Rate 3 Fraction of Inspired Oxygen ( 100 FIO2) Constitutional: No apparent distress, Alert Oriented to: Time, Person, Place - HEENT Head: Normal. negative: Laceration, Tender Eye: Normal. negative: Edema, Scleral Icterus Oropharynx: Normal. negative: Membranes Dry, Red ENT EAC: Normal. negative: Blood TMJ: Normal. negative: Crepitance, Tender Nose: No Symptoms Reported. negative: Abrasion, Bleeding - Respiratory/Cardiovascular Respiratory: Rhonchi. negative: Diminished - GI Auscultation: Normal. negative: Bruit Palpation: Normal. negative: Enlarged liver, Enlarged spleen Tenderness: Non tender Luong's Sign: Negative Rectal Exam: Deferred - Musculoskeletal Back: Normal. negative: Abrasion, CVA Tenderness - Integumentary Lymphatics: Normal. negative: Adenopathy, Tender - Neurologic Memory Impaired: Normal Cerebellar: Normal Mood Description: Normal Thought: Coherent Perception: Normal - Other Exam Other Exam Findings: Laboratory Tests 08/13/16 08/13/16 04:40 04:40 WBC 9.5 Hgb 8.8 L Hct 26.8 L Plt Count 700 H Sodium 138 Potassium 3.5 Chloride 100 Carbon Dioxide 25 Anion Gap 17 H BUN 23 H Creatinine 3.50 H Estimated GFR (MDRD) 14 L Glucose 79 Calculated Osmolality 269 L Calcium 8.4
[2016-08-13] MEDS ORDERED: FUROSEMIDE 40 MG/4 ML VIAL IV SCH (09:00)
[2016-08-13] MEDS: PROBIOTIC BLEND TAB PO SCH (10:09)
[2016-08-13] MEDS: POTASSIUM CHLORIDE 20 MEQ TAB PO SCH (10:09)
[2016-08-13] MEDS ORDERED: FUROSEMIDE 40 MG TAB PO ONE (11:00)
[2016-08-13 11:32] VITALS: BP 144/80; PULSE 74; TEMP 98
== END 2016-08-13 12:47 | disposition home or self-care (01) | DRG 871 ==
LOC: ED 15:00 → PCU 19:38
PROVIDERS: ADMIT Family Medicine; ATTEND Family Medicine
PROC: 0W9B3ZZ Drainage of Left Pleural Cavity, Percutaneous Approach (ICD-10-PCS; 2016-08-06)
PROC: 039C3ZZ Drainage of Left Radial Artery, Percutaneous Approach (ICD-10-PCS; 2016-08-06)
PROC: 30233N1 Transfusion of Nonautologous Red Blood Cells into Peripheral Vein, Percutaneous Approach (ICD-10-PCS; 2016-08-08)
PROC: 0B9P30Z Drainage of Left Pleura with Drainage Device, Percutaneous Approach (ICD-10-PCS; principal; 2016-08-11 09:00)
DX: A41.9 Sepsis, unspecified organism (principal); J12.9 Viral pneumonia, unspecified; N17.8 Other acute kidney failure; J91.8 Pleural effusion in other conditions classified elsewhere; K21.9 Gastro-esophageal reflux disease without esophagitis; D50.9 Iron deficiency anemia, unspecified; R09.1 Pleurisy; Z80.3 Family history of malignant neoplasm of breast; T36.8X5A Adverse effect of other systemic antibiotics, initial encounter; E78.00 Pure hypercholesterolemia, unspecified; Z79.899 Other long term (current) drug therapy
CPT/HCPCS: 32555; 36415; 36430; 36600; 71010; 71020; 71260; 76770; 80048; 80053; 80202; 81001; 82150; 82272; 82607; 82728; 82746; 82803; 83010; 83540; 83550; 83605; 83615; 83880; 83986; 84157; 84165; 84443; 84484; 85007; 85014; 85018; 85025; 85027; 85045; 85610; 85730; 86140; 86304; 86850; 86880; 86900; 86901; 86920; 87040; 87070; 87086; 87205; 88112; 88305; 89050; 89051; 93005; 93306; 94640; 96365; 96372; 96375; 99284; A4217; A9698; C1729; G0237; J0131; J1650; J1940; J1956; J2250; J2270; J2405; J2543; J3010; J3370; J3490; J7060; P9016

== ENCOUNTER → 2016-08-28 | Day surgery (SDC) | payer BC, OTHER ==
[2016-08-12 05:10] VITALS: BMI 30.3
[~2016-08-28] MED LIST: BUPIVACAINE 0.25%-EPINEPHRINE 1:200,000 30 ML INF ONE; DEXAMETHASONE 4 MG/ML VIAL IV PRN; DIAZEPAM 5 MG TAB PO PRN; FENTANYL 100 MCG/2 ML VIAL IV PRN; FENTANYL 100 MCG/2 ML VIAL ONE; HYDROCODONE 5 MG/ACETAMIN 325 MG TAB PO PRN; KETOROLAC TROMETH 30 MG/ML VIAL IV PRN; KETOROLAC TROMETH 30 MG/ML VIAL ONE; LABETALOL 20 MG/4 ML SYRINGE IV PRN; LR 1,000 ML IV ONE; LR 1,000 ML IV SCH; MIDAZOLAM 2 MG/2 ML VIAL ONE; NS 1,000 ML IV SCH; NS 250 ML IV SCH; ONDANSETRON HCL 4 MG/2 ML VIAL IV PRN; PROPOFOL 200 MG/20 ML VIAL IV ONE; SCOPOLAMINE TRANSDERMAL PATCH TOP PRN; hydrALAZINE 20 MG/ML VIAL IV PRN
--- NOTE | 2016-08-28 07:04 | SC.ANESEVA ---
Anesthesia Eval & Plan ([facility]) - Medications/Allergies Allergies: Allergies No Known Allergies Allergy (Verified 08/05/16 15:11) Current Medication List: Reviewed - Focused Physical Exam NPO since: Since after Midnight Mallampati: Class I Thyromental Distance: Greater than 3 Neck: Full Range of Motion Dental: Normal - no significant findings Cardiovascular/Chest: Normal (RRR no mumurs or rubs.) Respiratory: Lungs clear. 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 (08/28/16) Problem List Problem Status Onset Acute renal failure Acute Anemia Acute GERD (gastroesophageal reflux disease) Acute Microcytic anemia Acute Pleural effusion associated with pulmonary infection Acute Pneumonia Acute Respiratory insufficiency Acute Sepsis Acute Bacterial pneumonia Suspected Allergies Allergy/AdvReac Type Severity Reaction Status Date / Time No Known Allergies Allergy Verified 08/05/16 15:11 Home Medications Medication Instructions Recorded Last Taken Type Fluticasone/Salmeterol [Advair 1 inh INH BID #1 inhaler 07/31/16 08/05/16 Rx 250-50] Guaifenesin [Mucinex] 1,200 mg PO BID #20 tbmp.12hr 07/31/16 08/05/16 Rx L.acidoph/B.animalis/B.longum 460 mg PO DAILY #60 capsule 07/31/16 08/05/16 Rx [Florajen3 Capsule] Levalbuterol Tartrate [Xopenex Hfa] 200 puff IH Q4-6H PRN #1 hfa.aer.ad 08/05/16 Rx Acetaminophen with Codeine 5 ml PO Q4-6H PRN #120 ml 08/13/16 Unknown Rx [Tylenol with Codeine Elixir] PEG-Electrolytes (Miralax) 17 gm PO BID PRN #1 pack 08/13/16 Unknown Rx [Miralax] Vitamins,Minerals,Iron [Hemocyte 1 each PO BID #60 tab 08/13/16 08/12/16 18:00 Rx Plus] Height and Weight Patient's height 5 ft 9 in Patient's weight 96.434 kg BMI 30.3 - Anesthetic Plan Anesthesia Type: MAC ASA Class: 3 - Focused Review of Systems Cardiac History: No: Hx Cardiac Disorders HEENT: Yes: Hx Vision Problem (GLASSES, READING) Respiratory: Yes: Hx Asthma, Hx Pneumonia (10 days ago with large left pleural effusion s/p drainage), Other Hx Respiratory Gastrointestinal: Yes: Hx Gastroesophageal Reflux Disease Genitourinary: Yes: Hx Renal Failure (acute renal failure-resolving), Hx Frequent UTI's Neurological/Musculoskeletal: No: HX Cerebrovascular Accident, Hx Seizures Blood/Autoimmune: Yes: Hx Anemia (microcytic anemia) No: Hx Blood Transfusions Smoking Status: Never smoker Past Social History: Denies: Substance Use Disorder Surgical History: Yes: T&A, Other ()
[2016-08-28 12:26] VITALS: TEMP 97.5
[2016-08-28 13:09] VITALS: BP 161/70; PULSE 65
--- NOTE | 2016-08-28 13:10 | SC.ANESPOS ---
Post-Anesthesia Note LOC: Fully Awake Post-Anesthesia Assessment: Awake, Returned to Baseline, Hemodynamically Stable , Pain Control Adequate Phase I & II Recovery Complete: Yes Apparent Anesthesia Complication: No : N - Vital Signs Blood Pressure: 161/70 Pulse: 65 Resp Rate: 22 O2 Sat: 99 Temp: 97.5 F
--- NOTE | 2016-08-28 17:23 | HIMOPRPT ---
DATE OF PROCEDURE: 08/28/16 PREOPERATIVE DIAGNOSES: Recurrent pleural effusion, tunneled pleural catheter need for removal. POSTOPERATIVE DIAGNOSES: Same. PROCEDURES: Removal of tunneled pleural catheter, PleurX catheter. SURGEON: Fritz Esquivel MD ANESTHESIA: Local anesthesia with monitored IV sedation. COMPLICATIONS: None. ESTIMATED BLOOD LOSS: Minimal. ANTIBIOTICS: Preoperative antibiotics not required. INDICATIONS: The patient is a very pleasant 51-year-old female who had a recurrent symptomatic pleural effusion/empyema that we had drained with a PleurX catheter. She had significant discomfort when it was placed in so we felt she would be best served with removing it at the surgery center so she can get some sedation. We explained the risks and benefits of this to her including the risk infection, bleeding and anesthesia and she understood and agreed. OPERATIVE NOTE: Patient was brought to the operating room and placed on the operating table in the supine position. After adequate amount of moderate IV sedation she was prepped and draped sterile manner. The sutures were removed. We went ahead and infiltrated local anesthesia around the subcutaneous cuff and then used Metzenbaum scissors to dissect out the cuff without any problems. The catheter then was removed in total. A dry dressing was applied. The patient had tolerated this without any problems. She was awoke and taken recover room in excellent condition with correct sponge counts and needle counts.
== END ==
LOC: CPSC 10:43
PROVIDERS: ATTEND Surgery
PROC: 0BPQX0Z Removal of Drainage Device from Pleura, External Approach (ICD-10-PCS; principal; 2016-08-28 12:00)
DX: J86.9 Pyothorax without fistula (principal); J45.909 Unspecified asthma, uncomplicated; K21.9 Gastro-esophageal reflux disease without esophagitis; Z79.899 Other long term (current) drug therapy
CPT/HCPCS: 32552; J1885; J2250; J2704; J3010; J3490